=== PATIENT | male | born 1965 | race Caucasian/White ===

== ENCOUNTER 2019-01-14 13:14 | Emergency (ER) | payer OTHER ==
[~2019-01-14] VITALS: Ht 188 cm; Wt 98.5 kg
[2019-01-14 13:16] VITALS: BP 136/86
[2019-01-14] MEDS ORDERED: sulfamethoxazole/trimethoprim DS (800/160mg) tablet PO ONE (13:45)
[2019-01-14] MEDS ORDERED: SULF1TAB49 PO (13:52)
[2019-01-14] MEDS ORDERED: bacitracin 15gm ointment TP ONE (13:55)
[2019-01-15] MEDS ORDERED: HYDR-3965 PO (03:23)
== END 2019-01-14 14:50 | disposition home or self-care (01) ==
LOC: ER 13:14
DX: L08.9 Local infection of the skin and subcutaneous tissue, unspecified (principal); Z79.2 Long term (current) use of antibiotics
CPT/HCPCS: 73130; 99283

== ENCOUNTER 2019-01-15 01:12 | Emergency (ER) | payer OTHER ==
[~2019-01-15] VITALS: Ht 188 cm; Wt 96.0 kg
[~2019-01-15 01:12] MED LIST: SULF1TAB49 PO
--- NOTE | 2019-01-15 02:40 | NUR ---
PT SEEN HERE AROUND NOON TODAY. XRAY TAKEN AND NO FRACTURE NOTED, PT STARTED ON BACTRUM. PT REPORTS "FELICIANO NEVER BEEN IN SO MUCH PAIN IN ALL MY LIFE". rEPORTS THE LEFT HANDIS MORE SWOLLEN AND THE PAIN WAS ONLY IN HIS PINKY FINGER EARLIER, BUT IS NOW IN 5TH, 4TH AND 3RD DIGIT. CURRENT VSS.
--- NOTE | 2019-01-15 02:55 | NUR ---
PT AWAITING ER .
[2019-01-15] MEDS ORDERED: HYDROcodone/acetaminophen 5mg/325mg tablet PO ONE (03:20)
[2019-01-15] MEDS ORDERED: HYDR-3965 PO (03:23)
[2019-01-15 03:37] VITALS: BP 117/74
== END 2019-01-15 03:39 | disposition home or self-care (01) ==
LOC: ER 01:14
DX: L03.114 Cellulitis of left upper limb (principal); Z79.2 Long term (current) use of antibiotics; Z79.899 Other long term (current) drug therapy
CPT/HCPCS: 99283

== ENCOUNTER 2020-10-18 16:20 | Inpatient (IN) | payer OTHER ==
[~2020-10-18] VITALS: Ht 188 cm; Wt 110.2 kg
--- NOTE | 2020-10-18 16:53 | NUR ---
DR NEWMAN AT BEDSIDE, AWARE OF HR
[2020-10-18] MEDS ORDERED: normal saline 1000ML IV soln IVB ONE ×3 (16:55→20:05)
[2020-10-18] MEDS ORDERED: aspirin 81mg tab.chew PO ONE (16:55)
[2020-10-18] MEDS ORDERED: diltiazem-NS 100mg/100ml 100 ML IV ONE (16:55)
[2020-10-18] MEDS ORDERED: diltiazem 5mg/ml 5ml inj. IV ONE ×2 (16:55→17:50)
[2020-10-18 17:09] LABS: BASOPHILS # (AUTO) 0.1 X10'3 (0-0.2); BASOPHILS % (AUTO) 1.2 % (0-1); EOSINOPHILS # (AUTO) 0.1 X10'3 (0-0.9); HEMATOCRIT 44.2 % (42.0-52.0); HEMOGLOBIN 14.5 g/dl (14.0-17.9); LYMPHOCYTES # (AUTO) 1.4 X10'3 (1.1-4.8); LYMPHOCYTES % (AUTO) 21.4 % (21-51); MEAN CORPUSCULAR HEMOGLOBIN 29.6 PG (27.0-31.0); MEAN CORPUSCULAR HGB CONC 32.9 g/dL (33.0-36.5); MEAN CORPUSCULAR VOLUME 89.9 FL (78-98); MEAN PLATELET VOLUME 8.1 FL (7.4-10.4); MONOCYTES # (AUTO) 0.4 X10'3 (0-0.9); MONOCYTES % (AUTO) 5.9 % (2-12); NEUTROPHILS # (AUTO) 4.7 X10'3 (1.8-7.7); NEUTROPHILS % (AUTO) 70.5 % (42-75); PLATELET COUNT 322 X10'3 (140-440); RED BLOOD COUNT 4.92 X10'6 (4.70-6.10); RED CELL DISTRIBUTION WIDTH 14.4 % (11.5-14.5); WHITE BLOOD COUNT 6.7 X10'3 (4.5-11.0)
[2020-10-18 17:15] LABS: ALANINE AMINOTRANSFERASE 42 U/L (12-78); ALBUMIN 3.2 G/DL (3.4-5.0); ALKALINE PHOSPHATASE 56 IU/L (46-116); ANION GAP 10 (8-16); ASPARTATE AMINO TRANSFERASE 18 U/L (10-37); BILIRUBIN,TOTAL 0.5 MG/DL (0.1-1.0); BLOOD UREA NITROGEN 23 MG/DL (7-18); BUN/CREATININE RATIO 19.8 (5.4-32.0); CALCIUM 8.4 MG/DL (8.5-10.1); CHLORIDE 106 MMOL/L (99-107); CREATININE 1.16 MG/DL (0.60-1.10); GLUCOSE 116 MG/DL (70-104); POTASSIUM 4.6 MMOL/L (3.5-5.1); SODIUM 139 MMOL/L (135-145); TOTAL CARBON DIOXIDE 22.8 MMOL/L (24-32); TOTAL PROTEIN 6.4 G/DL (6.4-8.2); eGFR 65 ML/MIN
[2020-10-18 17:23] LABS: ETHANOL < 0.010 GM/DL (0.0-0.010); MAGNESIUM 1.7 MG/DL (1.5-2.4)
--- NOTE | 2020-10-18 17:48 | NUR ---
DR NEWMAN AT BEDSIDE, ORDER FOR ANOTHER 10 OF CINTIA
[2020-10-18] MEDS ORDERED: metoprolol tartrate 1mg/ml inj IV ONE (17:50)
[2020-10-18] MEDS ORDERED: iohexol 350MG/ML 100ml bottle IV ONE (17:59)
[2020-10-18] MEDS ORDERED: LORazepam 2 mg/ml vial IV ONE (19:00)
--- NOTE | 2020-10-18 19:12 | NUR ---
PT VERY ANXIOUS, SWEATY, HR INCREASING, THEN DECREASING, FROM 80'S TO 120'S. DR NEWMAN AWARE, WILL GIVE ATIVAN
[2020-10-18 19:20] LABS: URINE AMPHETAMINE SCREEN POSITIVE (Neg); URINE BARBITUATE SCREEN NEGATIVE (Neg); URINE BENZODIAZEPINES SCREEN NEGATIVE (Neg); URINE CANNABINOID SCREEN POSITIVE (Neg); URINE COCAINE SCREEN NEGATIVE (Neg); URINE METHADONE SCREEN NEGATIVE (Neg); URINE OPIATE SCREEN NEGATIVE (Neg); URINE PHENCYCLIDINE SCREEN NEGATIVE (Neg)
--- NOTE | 2020-10-18 19:30 | NUR ---
TO CT WITH THIS RN ON MONITOR
--- NOTE | 2020-10-18 19:50 | NUR ---
RETURNED TO ROOM 2, PT RESTING NOW
[2020-10-18] MEDS ORDERED: magnesium hydroxide 30ml (MOM) UD suspension PO PRN (20:10)
[2020-10-18] MEDS ORDERED: magnesium Cl slow-release 64mg tablet PO PRN (20:10)
[2020-10-18] MEDS ORDERED: magnesium 4gm in 100ml NS 100 ML IV PRN (20:10)
[2020-10-18] MEDS ORDERED: potassium Cl 40MEQ/1/2NS 520ml 520 ML IV PRN ×2 (20:10)
[2020-10-18] MEDS ORDERED: acetaminophen 325mg tablet PO PRN (20:10)
[2020-10-18] MEDS ORDERED: magnesium 2GM in 50ml NS 50 ML IV PRN (20:10)
[2020-10-18] MEDS ORDERED: mag hydrox/Alum hydrox/simeth 30ml oral suspension PO PRN (20:10)
[2020-10-18] MEDS ORDERED: PERFLUTREN PROTEIN-A MICROSPHR (Optison) 0.22 MG/ML 3ML VIAL IV PRN (20:10)
[2020-10-18] MEDS ORDERED: potassium Cl 20 mEq SR tablet PO PRN ×2 (20:10)
[2020-10-18] MEDS ORDERED: NO HOME MEDS (20:18)
[2020-10-18] MEDS: normal saline 1000ml 1,000 ML IV SCH ×2 (20:26→23:45)
--- NOTE | 2020-10-18 21:15 | NUR ---
DR BAUGH PG'ED TO NOTIFY THAT PT'S HR CONTINUES TO JUMP TO 140'S INTERMITTENTLY (ONLY STAYING FOR ABOUT 30 SECONDS, THEN GOING BACK TO 80'S). APPEARS TO BE AFLUTTER OR A FIB. DR BAUGH OK WITH THAT, DOES NOT WANT TO DO BETABLOCKERS AT THIS TIME DUE TO PTS BP. CONFIRMED WITH DR BAUGH THAT HE WANTS A TOTAL OF 90 MG LOVENOX AT THIS TIME. PT CONTINUES TO SLEEP. SKIN LESS DIAPHORETIC. AWAKENS EASILY TO VOICE
[2020-10-18] MEDS: enoxaparin 30mg/0.3ml syringe SUBCUT SCH (21:51)
[2020-10-18] MEDS: enoxaparin 60mg/0.6ml syringe SUBCUT SCH (21:52)
--- NOTE | 2020-10-18 22:00 | NUR ---
Patient in room MED 314. I have received report from Krystina(ER), and had the opportunity to ask questions and assume patient care.
[2020-10-18 22:30] VITALS: BP 102/76
[2020-10-18 23:25] VITALS: BP 97/73
[2020-10-19] VITALS (10 sets, daily range): BP systolic 79–123; BP diastolic 34–86
--- NOTE | 2020-10-19 00:15 | NUR ---
Called Dr. Pierre regarding the patient's irregular heart rate, ranging from 80's to 130's. He is aware of it. Did not order any medications at this time.
--- NOTE | 2020-10-19 00:20 | NUR ---
Called Dr. Pierre regarding the patient being agitated and anxious. He ordered ativan 1mg IV PRN Q4hr. No other orders were given at this time.
[2020-10-19] MEDS: LORazepam 2 mg/ml vial IV PRN ×2 (00:31→09:26)
--- NOTE | 2020-10-19 03:07 | NUR ---
Called Dr. Pierre to confirm that the patient's cardizem drip discontinued before the patient get at our floor at around 1999. He confirmed that yes the cardizem drip is discontinued.
--- NOTE | 2020-10-19 06:20 | NUR ---
Problems reprioritized. Patient report given, questions answered & plan of care reviewed with Jaki-RN.
[2020-10-19 06:56] LABS: BASOPHILS % (AUTO) 0.7 % (0-1); EOSINOPHILS # (AUTO) 0.1 X10'3 (0-0.9); EOSINOPHILS % (AUTO) 1.1 % (0-6); HEMATOCRIT 42.1 % (42.0-52.0); HEMOGLOBIN 13.8 g/dl (14.0-17.9); LYMPHOCYTES # (AUTO) 1.5 X10'3 (1.1-4.8); LYMPHOCYTES % (AUTO) 21.8 % (21-51); MEAN CORPUSCULAR HEMOGLOBIN 29.5 PG (27.0-31.0); MEAN CORPUSCULAR HGB CONC 32.9 g/dL (33.0-36.5); MEAN CORPUSCULAR VOLUME 89.8 FL (78-98); MEAN PLATELET VOLUME 8.8 FL (7.4-10.4); MONOCYTES # (AUTO) 0.4 X10'3 (0-0.9); MONOCYTES % (AUTO) 6.2 % (2-12); NEUTROPHILS # (AUTO) 4.7 X10'3 (1.8-7.7); NEUTROPHILS % (AUTO) 70.2 % (42-75); PLATELET COUNT 296 X10'3 (140-440); RED BLOOD COUNT 4.69 X10'6 (4.70-6.10); RED CELL DISTRIBUTION WIDTH 14.8 % (11.5-14.5); WHITE BLOOD COUNT 6.7 X10'3 (4.5-11.0)
[2020-10-19 07:06] LABS: ALANINE AMINOTRANSFERASE 38 U/L (12-78); ALBUMIN 2.7 G/DL (3.4-5.0); ALBUMIN/GLOBULIN RATIO 0.9 (1.1-1.5); ALKALINE PHOSPHATASE 48 IU/L (46-116); ANION GAP 9 (8-16); ASPARTATE AMINO TRANSFERASE 13 U/L (10-37); BILIRUBIN,TOTAL 1.1 MG/DL (0.1-1.0); BLOOD UREA NITROGEN 21 MG/DL (7-18); BUN/CREATININE RATIO 19.3 (5.4-32.0); CALCIUM 7.9 MG/DL (8.5-10.1); CHLORIDE 111 MMOL/L (99-107); CREATININE 1.09 MG/DL (0.60-1.10); GLUCOSE 97 MG/DL (70-104); POTASSIUM 4.5 MMOL/L (3.5-5.1); SODIUM 141 MMOL/L (135-145); TOTAL CARBON DIOXIDE 20.8 MMOL/L (24-32); TOTAL PROTEIN 5.7 G/DL (6.4-8.2); eGFR 70 ML/MIN
[2020-10-19] MEDS: enoxaparin 60mg/0.6ml syringe SUBCUT SCH ×2 (08:00→21:17)
[2020-10-19] MEDS ORDERED: metoprolol tartrate 12.5mg (1/2 tablet) PO SCH (08:00)
[2020-10-19] MEDS: enoxaparin 30mg/0.3ml syringe SUBCUT SCH ×2 (08:00→21:16)
[2020-10-19] MEDS: K and/or MAG REPLACEMENT MC SCH ×2 (08:00→20:00)
--- NOTE | 2020-10-19 09:38 | NUR ---
PAGER ID: [phone] MESSAGE: patient in room 314 [place] is very anxious and short of breath gave Ativan, he is on NC 5 l right now with sats between 88%-92% (Jaki)
[2020-10-19] MEDS ORDERED: diltiazem-NS 100mg/100ml 100 ML IV SCH (10:05)
[2020-10-19] MEDS ORDERED: amiodarone 150mg/dext, iso-os 100 ML IV ONE ×2 (11:35→16:05)
[2020-10-19] MEDS: amiodarone/D5 360MG/200ML BAG 200 ML IV SCH ×3 (11:53→22:26)
[2020-10-19] MEDS ORDERED: furosemide 40mg/4ml inj IV ONE (12:10)
[2020-10-19] MEDS ORDERED: LORazepam 2 mg/ml vial IV ONE (12:20)
[2020-10-19] MEDS ORDERED: ipratropium/albuterol 3ml nebule NEB PRN (12:25)
[2020-10-19 12:40] LABS: BASOPHILS # (AUTO) 0.1 X10'3 (0-0.2); BASOPHILS % (AUTO) 0.9 % (0-1); EOSINOPHILS # (AUTO) 0.1 X10'3 (0-0.9); EOSINOPHILS % (AUTO) 0.7 % (0-6); HEMATOCRIT 47.3 % (42.0-52.0); HEMOGLOBIN 15.7 g/dl (14.0-17.9); LYMPHOCYTES # (AUTO) 1.5 X10'3 (1.1-4.8); LYMPHOCYTES % (AUTO) 18.9 % (21-51); MEAN CORPUSCULAR HGB CONC 33.1 g/dL (33.0-36.5); MEAN CORPUSCULAR VOLUME 90.6 FL (78-98); MEAN PLATELET VOLUME 8.4 FL (7.4-10.4); MONOCYTES # (AUTO) 0.4 X10'3 (0-0.9); NEUTROPHILS # (AUTO) 5.9 X10'3 (1.8-7.7); NEUTROPHILS % (AUTO) 74.5 % (42-75); PLATELET COUNT 338 X10'3 (140-440); RED BLOOD COUNT 5.23 X10'6 (4.70-6.10); RED CELL DISTRIBUTION WIDTH 14.7 % (11.5-14.5); WHITE BLOOD COUNT 7.9 X10'3 (4.5-11.0)
[2020-10-19 12:55] LABS: D-DIMER 0.92 MG/L FEU (0-0.50); PARTIAL THROMBOPLASTIN TIME 31 SECONDS (22-32)
[2020-10-19] MEDS ORDERED: LORazepam 2 mg/ml vial IV PRN (12:55)
[2020-10-19 13:07] LABS: ALANINE AMINOTRANSFERASE 46 U/L (12-78); ALBUMIN/GLOBULIN RATIO 0.9 (1.1-1.5); ALKALINE PHOSPHATASE 60 IU/L (46-116); ANION GAP 11 (8-16); ASPARTATE AMINO TRANSFERASE 20 U/L (10-37); BILIRUBIN,TOTAL 1.1 MG/DL (0.1-1.0); BLOOD UREA NITROGEN 22 MG/DL (7-18); BUN/CREATININE RATIO 18.5 (5.4-32.0); CALCIUM 8.3 MG/DL (8.5-10.1); CHLORIDE 110 MMOL/L (99-107); CREATININE 1.19 MG/DL (0.60-1.10); GLUCOSE 125 MG/DL (70-104); POTASSIUM 4.5 MMOL/L (3.5-5.1); SODIUM 142 MMOL/L (135-145); TOTAL CARBON DIOXIDE 20.6 MMOL/L (24-32); TOTAL PROTEIN 6.5 G/DL (6.4-8.2); TROPONIN I < 0.04 NG/ML (0.0-0.05); eGFR 63 ML/MIN
[2020-10-19 13:13] LABS: ABG BASE EXCESS -7.1 mmol/L (-2.0-2.0); ABG HCO3 14.6 mmol/L (22.0-26.0); ABG OXYGEN SATURATION 94.3 % (94-97); ABG PCO2 (T) 22.3 mmHg (35.0-48.0); ABG PO2 (T) 69.6 mmHg (75.0-100.0); ALLEN'S TEST POSITIVE; FCOHb 0.4 % (0.0-3.9); FLOW 15 L/min; FMetHb 0.2 % (0.0-1.5); FO2Hb 93.7 % (94-97); TOTAL HEMOGLOBIN 15.5 G/dl (14.0-18.0)
[2020-10-19] MEDS ORDERED: morphine 2 MG/ML inj. syringe IV PRN (14:10)
[2020-10-19] MEDS ORDERED: morphine 2 MG/ML inj. syringe IV STA (14:45)
[2020-10-19] MEDS ORDERED: haloperidol lactate 5mg/ml inj IM ONE ×2 (14:50)
[2020-10-19] MEDS: ipratropium/albuterol 3ml nebule NEB SCH ×3 (15:00→22:55)
[2020-10-19] MEDS ORDERED: diphenhydrAMINE 50 mg/ml inj ONE (15:03)
[2020-10-19] MEDS ORDERED: diphenhydrAMINE 50 mg/ml inj IV ONE (15:05)
[2020-10-19] MEDS ORDERED: MIDAZolam 1mg/ml 10ml vial ONE (15:26)
[2020-10-19] MEDS ORDERED: fentaNYL/PF 50MCG/1 ML 2ML syringe ONE (15:26)
--- NOTE | 2020-10-19 15:30 | NUR ---
CUSTOMER ASSISTANT Argenis administered 5mg of versed and fentanyl to patient during code blue. All of fentanyl was administered during code.
[2020-10-19] MEDS ORDERED: fentaNYL/PF 50MCG/1 ML 2ML syringe IV ONE (15:35)
[2020-10-19] MEDS ORDERED: MIDAZolam 1mg/ml 10ml vial IV ONE (15:35)
[2020-10-19] MEDS ORDERED: LIDOcaine 2% 10ml TOPICAL JELLY (Urojet) TP ONE (16:20)
[2020-10-19] MEDS: vancomycin/NS 1 GM ADD-VANTAGE 250 ML IV SCH (16:36)
[2020-10-19 17:04] LABS: CLARITY,URINE CLOUDY (Clear); COLOR,URINE YELLOW (Yellow); GLUCOSE, URINE NEGATIVE (Neg); KETONES,URINE NEGATIVE (Neg); LEUKOCYTE ESTERASE ,URINE NEGATIVE (Neg); NITRITES, URINE NEGATIVE (Neg); OCCULT BLOOD,URINE SMALL (Neg); PH,URINE 5.5 (4.8-8.0); PROTEIN,URINE >=300 mg/dl (Neg); UROBILINOGEN,URINE 0.2 E.U/dL (0.2-1.0)
[2020-10-19] MEDS ORDERED: albumin (Human) 5% 250ml 250 ML IV ONE ×2 (17:10)
[2020-10-19] MEDS ORDERED: sodium bicarbonate (8.4%) inj. 100 MEQ in dextrose 5%-water 1,000 ML IV SCH (17:10)
[2020-10-19 17:12] LABS: UA COLLECTION TYPE FOLEY CATH
[2020-10-19 17:19] LABS: HYALINE CASTS >30 /LPF (NEGATIVE); SQUAMOUS EPITHELIAL CELL,UR FEW /LPF (FEW)
[2020-10-19 17:20] LABS: MUCUS STRANDS FEW /LPF (Neg); RENAL CELLS, URINE FEW /HPF; TRANSITIONAL EPI CELLS,URINE FEW /HPF
[2020-10-19 17:21] LABS: WBC,URINE 0-4 /HPF (0-4)
[2020-10-19 17:23] LABS: AMORPHOUS URATES 4+; BACTERIA,URINE NONE SEEN /HPF (Neg)
--- NOTE | 2020-10-19 17:28 | NUR ---
PATIENT WAS TRASNFERED WITH GLASSES AND AND CELLPHONE TO ICUI
[2020-10-19] MEDS ORDERED: etomidate 2mg/ml inj. ONE (18:00)
[2020-10-19] MEDS ORDERED: sod chloride 0.9% 10ml flush syringe IV ONE (18:00)
[2020-10-19] MEDS: midazolam 100mg in NS 100ml 100 ML IV SCH (18:09)
--- NOTE | 2020-10-19 18:53 | NUR ---
Problems reprioritized. Patient report given, questions answered & plan of care reviewed with Lilian Aragon RN. Needs ETT advancement, start levophed, start bicarb.
[2020-10-19] MEDS: FENTANYL-0.9 % NACL/PF 100 ML IV SCH (21:20)
[2020-10-19] MEDS: piperacillin/tazo 3.375gm/50ml 50 ML IV SCH (22:05)
[2020-10-19] MEDS: NORepinephrine 8mg/ 250ml NS 250 ML IV PRN (22:23)
[2020-10-20] VITALS (23 sets, daily range): BP systolic 59–101; BP diastolic 31–61
[2020-10-20] MEDS: piperacillin/tazo 3.375gm/50ml 50 ML IV SCH ×3 (00:42→15:55)
[2020-10-20] MEDS: DOBUTamine-DoBUTrex 500mg/D5W 250 ML IV SCH ×3 (01:12→19:00)
[2020-10-20] MEDS: NORepinephrine 8mg/ 250ml NS 250 ML IV PRN ×2 (01:40→03:35)
[2020-10-20] MEDS ORDERED: sodium bicarbonate (8.4%) 1 mEq/ml syringe ONE (02:37)
[2020-10-20] MEDS ORDERED: calcium chloride 100 MG/1 ML inj IV ONE ×2 (02:37→03:05)
[2020-10-20] MEDS ORDERED: epiNEPHrine 0.1mg/ml 10ml syringe ONE (02:38)
[2020-10-20] MEDS: ipratropium/albuterol 3ml nebule NEB SCH ×6 (02:58→23:11)
[2020-10-20] MEDS ORDERED: sodium bicarbonate (8.4%) 1 mEq/ml syringe IV ONE ×2 (03:00→05:05)
[2020-10-20 03:05] LABS: BASOPHILS % (AUTO) 0.2 % (0-1); EOSINOPHILS % (AUTO) 0.1 % (0-6); LYMPHOCYTES # (AUTO) 0.9 X10'3 (1.1-4.8); LYMPHOCYTES % (AUTO) 7.3 % (21-51); MEAN CORPUSCULAR HEMOGLOBIN 29.7 PG (27.0-31.0); MEAN CORPUSCULAR HGB CONC 31.8 g/dL (33.0-36.5); MEAN CORPUSCULAR VOLUME 93.3 FL (78-98); MEAN PLATELET VOLUME 8.6 FL (7.4-10.4); MONOCYTES % (AUTO) 7.9 % (2-12); NEUTROPHILS # (AUTO) 10.8 X10'3 (1.8-7.7); NEUTROPHILS % (AUTO) 84.5 % (42-75); PLATELET COUNT 277 X10'3 (140-440); RED BLOOD COUNT 4.72 X10'6 (4.70-6.10); RED CELL DISTRIBUTION WIDTH 15.2 % (11.5-14.5); WHITE BLOOD COUNT 12.8 X10'3 (4.5-11.0)
[2020-10-20 03:21] LABS: ALBUMIN 2.8 G/DL (3.4-5.0); ALKALINE PHOSPHATASE 59 IU/L (46-116); ANION GAP 20 (8-16); BILIRUBIN,TOTAL 2.4 MG/DL (0.1-1.0); BLOOD UREA NITROGEN 34 MG/DL (7-18); BUN/CREATININE RATIO 12.1 (5.4-32.0); CALCIUM 7.5 MG/DL (8.5-10.1); CHLORIDE 108 MMOL/L (99-107); CREATININE 2.81 MG/DL (0.60-1.10); GLUCOSE 87 MG/DL (70-104); MAGNESIUM 2.2 MG/DL (1.5-2.4); SODIUM 140 MMOL/L (135-145); TOTAL PROTEIN 5.5 G/DL (6.4-8.2); eGFR 23 ML/MIN
[2020-10-20] MEDS: vasopressin inj. 40 UNIT in normal saline 50ml IV soln 38 ML IV SCH ×2 (03:33→09:28)
[2020-10-20] MEDS: vancomycin/NS 1 GM ADD-VANTAGE 250 ML IV SCH (03:35)
[2020-10-20] MEDS: epiNEPHrine inj 5 MG in normal saline 250ml IV soln 245 ML IV PRN ×5 (03:35→10:49)
[2020-10-20 03:44] LABS: POTASSIUM 6.8 MMOL/L (3.5-5.1); TOTAL CARBON DIOXIDE 11.7 MMOL/L (24-32)
[2020-10-20 03:55] LABS: ALANINE AMINOTRANSFERASE 2603 U/L (12-78); ASPARTATE AMINO TRANSFERASE 2395 U/L (10-37)
[2020-10-20] MEDS: sodium bicarbonate (8.4%) inj. 150 MEQ in dextrose 5%-water 1,000 ML IV SCH ×2 (04:02→15:24)
[2020-10-20] MEDS ORDERED: dextrose 50%-water 50ml dispensing syringe IV ONE (05:05)
[2020-10-20] MEDS ORDERED: sodium polystyrene sulfonate 15gm/60ml oral suspension PO ONE (05:10)
[2020-10-20] MEDS ORDERED: insulin regular, human U-100 3ml vial - multi-dose IV ONE (05:40)
[2020-10-20] MEDS ORDERED: calcium chloride inj. 1,000 MG in normal saline 100ml IV soln 100 ML IV ONE (05:40)
[2020-10-20] MEDS: amiodarone/D5 360MG/200ML BAG 200 ML IV SCH ×4 (05:47→22:40)
[2020-10-20] MEDS: NORepinephrine inj. 32 MG in normal saline 250ml IV soln 218 ML IV SCH ×4 (05:52→22:07)
[2020-10-20] MEDS ORDERED: potassium Cl 40MEQ/250ML bag 270 ML IV PRN ×2 (07:55)
[2020-10-20] MEDS ORDERED: magnesium 4gm in 100ml NS 100 ML IV PRN ×2 (07:55→08:00)
[2020-10-20] MEDS ORDERED: calcium chloride inj. 1,000 MG in normal saline 100ml IV soln 100 ML IV PRN ×5 (07:55→08:00)
[2020-10-20] MEDS ORDERED: sodium phosphate inj. 30 MMOL in normal saline 250ml IV soln 250 ML IV PRN ×5 (07:55→08:00)
[2020-10-20] MEDS ORDERED: bicarb dialysis sol 2K+/3 Ca2+ 5,000 ML HE SCH (08:00)
[2020-10-20] MEDS: losartan 25mg tablet PO SCH (08:00)
[2020-10-20] MEDS: metoprolol succinate 25mg (24-HOUR) SR. Tablet PO SCH (08:00)
[2020-10-20] MEDS: CALCIUM GLUC 1gm/50ml NACL,iso 50 ML IV SCH ×2 (08:02→08:39)
[2020-10-20 08:04] LABS: ALBUMIN 2.2 G/DL (3.4-5.0); ALKALINE PHOSPHATASE 51 IU/L (46-116); ANION GAP 26 (8-16); BILIRUBIN,TOTAL 1.8 MG/DL (0.1-1.0); BLOOD UREA NITROGEN 39 MG/DL (7-18); BUN/CREATININE RATIO 12.5 (5.4-32.0); CALCIUM 7.1 MG/DL (8.5-10.1); CHLORIDE 111 MMOL/L (99-107); CREATININE 3.13 MG/DL (0.60-1.10); GLUCOSE 149 MG/DL (70-104); MAGNESIUM 1.8 MG/DL (1.5-2.4); PHOSPHORUS 6.8 MG/DL (2.3-4.5); POTASSIUM 3.6 MMOL/L (3.5-5.1); SODIUM 147 MMOL/L (135-145); TOTAL PROTEIN 4.5 G/DL (6.4-8.2); eGFR 21 ML/MIN
[2020-10-20 08:09] LABS: TOTAL CARBON DIOXIDE 9.9 MMOL/L (24-32)
[2020-10-20] MEDS: K and/or MAG REPLACEMENT MC SCH ×2 (08:20→20:00)
[2020-10-20 08:22] LABS: ALANINE AMINOTRANSFERASE 6056 U/L (12-78); ASPARTATE AMINO TRANSFERASE > 7000 U/L (10-37)
[2020-10-20] MEDS: midazolam 100mg in NS 100ml 100 ML IV SCH (09:25)
[2020-10-20] MEDS: Duosol 4K/3 Ca (w/calcium) 5,000 ML HE SCH ×9 (10:04→22:22)
[2020-10-20 10:13] LABS: OXYGEN SATURATION (MIXED VEN) 47.6 % (60-80); PO2 MIXED VENOUS (TEMP COR) 31.8 mmHg (35-46)
[2020-10-20 10:13] LABS: ABG BASE EXCESS -11.9 mmol/L (-2.0-2.0); ABG HCO3 15.7 mmol/L (22.0-26.0); ABG OXYGEN SATURATION 83.4 % (94-97); ABG PCO2 (T) 41.2 mmHg (35.0-48.0); ABG PO2 (T) 58.5 mmHg (75.0-100.0); ALLEN'S TEST POSITIVE; FCOHb 0.1 % (0.0-3.9); FMetHb 0.2 % (0.0-1.5); FO2Hb 83.1 % (94-97); PEEP 5 cm H2O; RESPIRATORY RATE 8 b/min; TIDAL VOLUME 500 mL; TOTAL HEMOGLOBIN 15.1 G/dl (14.0-18.0)
[2020-10-20 10:13] LABS: ABG BASE EXCESS -12.7 mmol/L (-2.0-2.0); ABG OXYGEN SATURATION 95.3 % (94-97); ABG PCO2 (T) 25.8 mmHg (35.0-48.0); ALLEN'S TEST POSITIVE; FCOHb 0.3 % (0.0-3.9); FMetHb 0.3 % (0.0-1.5); FO2Hb 94.7 % (94-97); PEEP 8 cm H2O; RESPIRATORY RATE 18 b/min; TIDAL VOLUME 500 mL; TOTAL HEMOGLOBIN 15.3 G/dl (14.0-18.0)
[2020-10-20 10:13] LABS: ABG HCO3 8.1 mmol/L (22.0-26.0); ABG OXYGEN SATURATION 84.5 % (94-97); ABG PO2 (T) 56.7 mmHg (75.0-100.0); ALLEN'S TEST n; FCOHb 0.1 % (0.0-3.9); FMetHb 0.3 % (0.0-1.5); FO2Hb 84.2 % (94-97); PATIENT TEMPERATURE 36.3; PEEP 8 cm H2O; RESPIRATORY RATE 18 b/min; TIDAL VOLUME 500 mL; TOTAL HEMOGLOBIN 14.8 G/dl (14.0-18.0)
[2020-10-20 10:43] LABS: CLARITY,URINE CLOUDY (Clear); COLOR,URINE YELLOW (Yellow); GLUCOSE, URINE NEGATIVE (Neg); KETONES,URINE TRACE mg/dl (Neg); LEUKOCYTE ESTERASE ,URINE NEGATIVE (Neg); NITRITES, URINE NEGATIVE (Neg); OCCULT BLOOD,URINE LARGE (Neg); PROTEIN,URINE >=300 mg/dl (Neg)
[2020-10-20] MEDS: pantoprazole 40 MG vial IV SCH (10:46)
[2020-10-20 10:53] LABS: UA COLLECTION TYPE NON-SPECIFIED
[2020-10-20 10:55] LABS: AMORPHOUS URATES 4+
[2020-10-20 10:56] LABS: PARTIAL THROMBOPLASTIN TIME 34 SECONDS (22-32)
[2020-10-20 10:57] LABS: RBC,URINE 50-100 /HPF (0-2)
[2020-10-20 10:58] LABS: BACTERIA,URINE 2+ /HPF (Neg); SQUAMOUS EPITHELIAL CELL,UR MODERATE /LPF (FEW)
[2020-10-20 11:19] LABS: D-DIMER > 35.20 MG/L FEU (0-0.50)
[2020-10-20 11:27] LABS: UA EOSINOPHILS NO EOS /HPF
--- NOTE | 2020-10-20 11:36 | NUR ---
Jose Consult: Pt intubated s/p code DX respiratory failure, lactic acidosis, CHF EF 15%, SAMUEL, and multi-organ failure at this time per precision dancer at rounds. Jose 12 w/ skin intact per EMR. Pt started on CVVH today receiving max dose on multiple pressors per RN w/ MAP 57 during rounds this AM. OG in place; TF recs below using IBW since pending scaled wt this admit. LBM 10/18. Will monitor for nutrition support needs this admit. Rec: 1. IF TF; Vital High Protein at 100ml/hr goal to provide 2400ml volume, 2400 kcals, 2016ml free water, and 210g protein. IF pt off CVVH consider change to Vital AF at 85ml/hr goal. 2. IF TF; additional water flush per precision dancer on CVVH 3. IF TF; PALB Q /; daily wts 4. IF TF; Phos binder on CVVH w/ Phos 6.8 5. routine bowel care 6. Monitor for MAP changes; consider postponing EN until MAP consistently at least 60 Addendum: 10/20/20 at [address] Amended: Links added.
[2020-10-20] MEDS: FENTANYL-0.9 % NACL/PF 100 ML IV SCH ×2 (11:47→21:18)
[2020-10-20] MEDS: normal saline 1000ml 1,000 ML IV SCH ×2 (12:10→15:51)
[2020-10-20 12:17] LABS: ALBUMIN 2.4 G/DL (3.4-5.0); ANION GAP 24 (8-16); BLOOD UREA NITROGEN 41 MG/DL (7-18); BUN/CREATININE RATIO 13.7 (5.4-32.0); CALCIUM 7.2 MG/DL (8.5-10.1); CHLORIDE 108 MMOL/L (99-107); GLUCOSE 137 MG/DL (70-104); MAGNESIUM 1.7 MG/DL (1.5-2.4); PHOSPHORUS 6.9 MG/DL (2.3-4.5); SODIUM 144 MMOL/L (135-145); eGFR 22 ML/MIN
[2020-10-20 12:23] LABS: TOTAL CARBON DIOXIDE 12.4 MMOL/L (24-32)
[2020-10-20] MEDS: NORMAL SALINE IV SCH ×3 (12:47→19:31)
[2020-10-20] MEDS: EPINEPHRINE IV SCH ×3 (12:47→19:31)
[2020-10-20 14:28] LABS: ALBUMIN 2.6 G/DL (3.4-5.0); ANION GAP 20 (8-16); BLOOD UREA NITROGEN 39 MG/DL (7-18); BUN/CREATININE RATIO 13.4 (5.4-32.0); CALCIUM 7.3 MG/DL (8.5-10.1); CHLORIDE 107 MMOL/L (99-107); CREATININE 2.91 MG/DL (0.60-1.10); GLUCOSE 141 MG/DL (70-104); MAGNESIUM 1.8 MG/DL (1.5-2.4); PHOSPHORUS 6.7 MG/DL (2.3-4.5); POTASSIUM 4.3 MMOL/L (3.5-5.1); SODIUM 143 MMOL/L (135-145); TOTAL CARBON DIOXIDE 16.2 MMOL/L (24-32); eGFR 23 ML/MIN
[2020-10-20 15:19] LABS: ABG HCO3 14.4 mmol/L (22.0-26.0); ABG OXYGEN SATURATION 98.2 % (94-97); ABG PCO2 (T) 29.2 mmHg (35.0-48.0); FCOHb 0.3 % (0.0-3.9); FMetHb 0.4 % (0.0-1.5); FO2Hb 97.5 % (94-97); PATIENT TEMPERATURE 35.5; PEEP 8 cm H2O; RESPIRATORY RATE 26 b/min; TIDAL VOLUME 500 mL
--- NOTE | 2020-10-20 17:38 | NUR ---
A-line and Tulio catheter placed by Dr. Prasad. CRRT started. Remains maxed out on pressors to maintain MAP 60-65. Sister Brooklyn at bedside today, able to receive updates by MD and plan to meet tomorrow for family meeting and plan of care.
--- NOTE | 2020-10-20 18:30 | NUR ---
Patient in room ICU 2043. I have received report from Donya JEAN and had the opportunity to ask questions and assume patient care.
[2020-10-20 20:09] LABS: ABG BASE EXCESS -3.4 mmol/L (-2.0-2.0); ABG HCO3 20.8 mmol/L (22.0-26.0); ABG OXYGEN SATURATION 96.4 % (94-97); ABG PCO2 (T) 34.9 mmHg (35.0-48.0); FCOHb 0.3 % (0.0-3.9); FMetHb 0.3 % (0.0-1.5); FO2Hb 95.8 % (94-97); PATIENT TEMPERATURE 37.1; PEEP 8 cm H2O; RESPIRATORY RATE 26 b/min; TIDAL VOLUME 500 mL; TOTAL HEMOGLOBIN 13.7 G/dl (14.0-18.0)
[2020-10-20 21:16] LABS: ALBUMIN 2.4 G/DL (3.4-5.0); ANION GAP 12 (8-16); BLOOD UREA NITROGEN 33 MG/DL (7-18); CALCIUM 7.1 MG/DL (8.5-10.1); CHLORIDE 107 MMOL/L (99-107); CREATININE 2.54 MG/DL (0.60-1.10); GLUCOSE 109 MG/DL (70-104); MAGNESIUM 1.5 MG/DL (1.5-2.4); PHOSPHORUS 4.8 MG/DL (2.3-4.5); POTASSIUM 4.1 MMOL/L (3.5-5.1); SODIUM 143 MMOL/L (135-145); TOTAL CARBON DIOXIDE 23.7 MMOL/L (24-32); eGFR 26 ML/MIN
[2020-10-20] MEDS: magnesium 4gm in 100ml NS 100 ML IV PRN (22:06)
[2020-10-21] VITALS (24 sets, daily range): BP systolic 86–95; BP diastolic 49–64
[2020-10-21] MEDS: piperacillin/tazo 3.375gm/50ml 50 ML IV SCH ×4 (00:38→23:40)
[2020-10-21] MEDS: sodium bicarbonate (8.4%) inj. 150 MEQ in dextrose 5%-water 1,000 ML IV SCH ×2 (01:30→13:31)
[2020-10-21] MEDS: midazolam 100mg in NS 100ml 100 ML IV SCH (01:30)
[2020-10-21] MEDS: DOBUTamine-DoBUTrex 500mg/D5W 250 ML IV SCH ×3 (02:40→20:58)
[2020-10-21] MEDS: EPINEPHRINE IV SCH ×5 (02:41→19:41)
[2020-10-21] MEDS: NORMAL SALINE IV SCH ×5 (02:41→19:41)
[2020-10-21 02:49] LABS: BASOPHILS % (AUTO) 0.4 % (0-1); EOSINOPHILS % (AUTO) 0.1 % (0-6); HEMATOCRIT 39.7 % (42.0-52.0); HEMOGLOBIN 13.3 g/dl (14.0-17.9); LYMPHOCYTES # (AUTO) 0.4 X10'3 (1.1-4.8); LYMPHOCYTES % (AUTO) 6.1 % (21-51); MEAN CORPUSCULAR HEMOGLOBIN 30.1 PG (27.0-31.0); MEAN CORPUSCULAR HGB CONC 33.5 g/dL (33.0-36.5); MEAN PLATELET VOLUME 8.8 FL (7.4-10.4); MONOCYTES # (AUTO) 0.2 X10'3 (0-0.9); MONOCYTES % (AUTO) 3.4 % (2-12); NEUTROPHILS # (AUTO) 6.5 X10'3 (1.8-7.7); PLATELET COUNT 157 X10'3 (140-440); RED BLOOD COUNT 4.42 X10'6 (4.70-6.10); RED CELL DISTRIBUTION WIDTH 14.2 % (11.5-14.5); WHITE BLOOD COUNT 7.2 X10'3 (4.5-11.0)
[2020-10-21 03:06] LABS: PARTIAL THROMBOPLASTIN TIME 36 SECONDS (22-32)
[2020-10-21 03:14] LABS: ALBUMIN 2.4 G/DL (3.4-5.0); ALKALINE PHOSPHATASE 107 IU/L (46-116); ANION GAP 14 (8-16); BILIRUBIN,TOTAL 2.6 MG/DL (0.1-1.0); BLOOD UREA NITROGEN 31 MG/DL (7-18); BUN/CREATININE RATIO 12.7 (5.4-32.0); CALCIUM 7.3 MG/DL (8.5-10.1); CHLORIDE 104 MMOL/L (99-107); CREATININE 2.45 MG/DL (0.60-1.10); GLUCOSE 98 MG/DL (70-104); MAGNESIUM 2.2 MG/DL (1.5-2.4); PHOSPHORUS 4.6 MG/DL (2.3-4.5); POTASSIUM 4.1 MMOL/L (3.5-5.1); SODIUM 141 MMOL/L (135-145); TOTAL CARBON DIOXIDE 23.4 MMOL/L (24-32); TOTAL PROTEIN 4.9 G/DL (6.4-8.2); eGFR 27 ML/MIN
[2020-10-21] MEDS: ipratropium/albuterol 3ml nebule NEB SCH ×6 (03:14→23:20)
[2020-10-21 03:23] LABS: ABG BASE EXCESS -2.4 mmol/L (-2.0-2.0); ABG HCO3 21.9 mmol/L (22.0-26.0); ABG OXYGEN SATURATION 92.3 % (94-97); ABG PO2 (T) 63.9 mmHg (75.0-100.0); FMetHb 0.3 % (0.0-1.5); PATIENT TEMPERATURE 36.8; PEEP 8 cm H2O; RESPIRATORY RATE 26 b/min; TIDAL VOLUME 500 mL; TOTAL HEMOGLOBIN 13.7 G/dl (14.0-18.0)
[2020-10-21 04:03] LABS: ALANINE AMINOTRANSFERASE > 7000 U/L (12-78); ASPARTATE AMINO TRANSFERASE > 7000 U/L (10-37)
[2020-10-21] MEDS: Duosol 4K/3 Ca (w/calcium) 5,000 ML HE SCH ×10 (04:07→23:43)
[2020-10-21] MEDS: vancomycin/NS 1 GM ADD-VANTAGE 250 ML IV SCH (04:09)
[2020-10-21] MEDS: vasopressin inj. 40 UNIT in normal saline 50ml IV soln 38 ML IV SCH ×2 (04:10→23:40)
[2020-10-21] MEDS: NORepinephrine inj. 32 MG in normal saline 250ml IV soln 218 ML IV SCH ×4 (04:11→20:57)
[2020-10-21 04:16] LABS: D-DIMER > 35.20 MG/L FEU (0-0.50)
[2020-10-21] MEDS: amiodarone/D5 360MG/200ML BAG 200 ML IV SCH ×4 (06:03→21:36)
--- NOTE | 2020-10-21 06:14 | NUR ---
Problems reprioritized. Patient report given, questions answered & plan of care reviewed with Donya JEAN and Emory JEAN.
[2020-10-21] MEDS: FENTANYL-0.9 % NACL/PF 100 ML IV SCH ×2 (07:46→19:25)
[2020-10-21] MEDS: losartan 25mg tablet PO SCH (07:47)
[2020-10-21] MEDS: metoprolol succinate 25mg (24-HOUR) SR. Tablet PO SCH (07:48)
[2020-10-21] MEDS: hydrocortisone sod succ/PF 100mg/2ml inj. IV SCH ×3 (07:53→19:40)
[2020-10-21] MEDS: pantoprazole 40 MG vial IV SCH (07:53)
[2020-10-21] MEDS: K and/or MAG REPLACEMENT MC SCH ×2 (07:57→20:00)
[2020-10-21 08:49] LABS: ALBUMIN 2.5 G/DL (3.4-5.0); ANION GAP 13 (8-16); BLOOD UREA NITROGEN 29 MG/DL (7-18); CALCIUM 7.3 MG/DL (8.5-10.1); CHLORIDE 105 MMOL/L (99-107); CREATININE 2.41 MG/DL (0.60-1.10); GLUCOSE 93 MG/DL (70-104); MAGNESIUM 2.1 MG/DL (1.5-2.4); PHOSPHORUS 4.6 MG/DL (2.3-4.5); POTASSIUM 4.6 MMOL/L (3.5-5.1); SODIUM 140 MMOL/L (135-145); TOTAL CARBON DIOXIDE 22.5 MMOL/L (24-32); eGFR 28 ML/MIN
[2020-10-21 09:01] LABS: BANDS% (MANUAL) 5 % (0-10); LYMPHOCYTES % (MANUAL) 6 % (21-51); METAMYLEOCYTES% (MANUAL) 1 % (0-0); MONOCYTES % (MANUAL) 2 % (2-12); NEUTROPHILS % (MANUAL) 86 % (42-75); TOTAL CELLS COUNTED 100
[2020-10-21 09:09] LABS: ABG HCO3 22.3 mmol/L (22.0-26.0); ABG OXYGEN SATURATION 95.5 % (94-97); ABG PCO2 (T) 36.2 mmHg (35.0-48.0); FCOHb 0.3 % (0.0-3.9); FMetHb 0.5 % (0.0-1.5); FO2Hb 94.7 % (94-97); PATIENT TEMPERATURE 36.7; PEEP 8 cm H2O; RESPIRATORY RATE 26 b/min; TIDAL VOLUME 500 mL; TOTAL HEMOGLOBIN 14.1 G/dl (14.0-18.0)
[2020-10-21 09:24] LABS: PLATELET ESTIMATE NORMAL
--- NOTE | 2020-10-21 10:33 | NUR ---
TF Consult: Pt remains on high dose pressors, CVVH, and MAP 66 this AM w/ trickle TF to start today per computer installation engineer. No need for phos binder w/ CVVH to assist w/ Phos correction per computer installation engineer. TF recs below using first scaled wt 104.7kg making BMI 29; will monitor for trickle tolerance and advancement as medically indicated. Rec: 1. Continuous trickle TF per MD using Vital High Protein at 10ml/hr; to provide 240ml volume, 240 kcals, 202ml free water, and 21g protein. 2. IF TF to advance; Vital High Protein at 100ml/hr goal to provide 2400ml volume, 2400 kcals, 2016ml free water, and 210g protein. 3. IF pt off CVVH consider change to Vital AF at 90ml/hr goal 4. additional water flush per computer installation engineer on CVVH 5. PALB Q /; daily wts 6. routine bowel care 7. Monitor for TF tolerance, advancement, and adjustment needs as medically indicated Addendum: 10/21/20 at [address] Amended: Links added.
[2020-10-21] MEDS ORDERED: CALCIUM GLUC 1gm/50ml NACL,iso 50 ML IV ONE (11:25)
[2020-10-21] MEDS ORDERED: magnesium hydroxide 30ml (MOM) UD suspension CORPAK PRN (12:05)
[2020-10-21] MEDS ORDERED: mag hydrox/Alum hydrox/simeth 30ml oral suspension CORPAK PRN (12:05)
[2020-10-21] MEDS ORDERED: acetaminophen 325mg/10.15ml oral unit dose solution CORPAK PRN (12:05)
[2020-10-21] MEDS ORDERED: potassium Cl 20 mEq SR tablet CORPAK PRN ×2 (12:09→12:10)
[2020-10-21 14:46] LABS: ALBUMIN 2.5 G/DL (3.4-5.0); ANION GAP 10 (8-16); BLOOD UREA NITROGEN 27 MG/DL (7-18); BUN/CREATININE RATIO 11.2 (5.4-32.0); CALCIUM 7.7 MG/DL (8.5-10.1); CHLORIDE 105 MMOL/L (99-107); CREATININE 2.41 MG/DL (0.60-1.10); GLUCOSE 95 MG/DL (70-104); PHOSPHORUS 4.4 MG/DL (2.3-4.5); POTASSIUM 5.4 MMOL/L (3.5-5.1); SODIUM 138 MMOL/L (135-145); eGFR 28 ML/MIN
[2020-10-21 14:52] LABS: TROPONIN I 0.67 NG/ML (0.0-0.05)
[2020-10-21 14:54] LABS: ABG BASE EXCESS -2.4 mmol/L (-2.0-2.0); ABG HCO3 20.7 mmol/L (22.0-26.0); ABG OXYGEN SATURATION 92.7 % (94-97); ABG PCO2 (T) 30.9 mmHg (35.0-48.0); FCOHb 0.2 % (0.0-3.9); FMetHb 0.3 % (0.0-1.5); FO2Hb 92.2 % (94-97); PATIENT TEMPERATURE 36.9; PEEP 8 cm H2O; RESPIRATORY RATE 26 b/min; TIDAL VOLUME 500 mL; TOTAL HEMOGLOBIN 14.3 G/dl (14.0-18.0)
[2020-10-21] MEDS ORDERED: heparin 10,000 units/1 ML INJ IV ONE (16:03)
[2020-10-21] MEDS: heparin 25,000 UNIT/250ml bag 250 ML IV SCH (16:41)
--- NOTE | 2020-10-21 18:18 | NUR ---
CVVH continues, attempt made to wean epi drip, goal to maintain MAP 60-65. Following labs and ABG's. Tube feeds started at 10 ml/hr.
--- NOTE | 2020-10-21 18:30 | NUR ---
Patient in room ICU 2043. I have received report from Donya JEAN and had the opportunity to ask questions and assume patient care.
[2020-10-21 20:57] LABS: ALBUMIN 2.6 G/DL (3.4-5.0); ANION GAP 9 (8-16); BLOOD UREA NITROGEN 31 MG/DL (7-18); BUN/CREATININE RATIO 11.9 (5.4-32.0); CALCIUM 7.4 MG/DL (8.5-10.1); CHLORIDE 103 MMOL/L (99-107); CREATININE 2.61 MG/DL (0.60-1.10); GLUCOSE 115 MG/DL (70-104); PHOSPHORUS 5.1 MG/DL (2.3-4.5); POTASSIUM 5.2 MMOL/L (3.5-5.1); SODIUM 135 MMOL/L (135-145); TOTAL CARBON DIOXIDE 23.3 MMOL/L (24-32); TROPONIN I 0.45 NG/ML (0.0-0.05); eGFR 26 ML/MIN
[2020-10-21] MEDS: heparin 10,000 units/1 ML INJ IV PRN (21:37)
[2020-10-22] VITALS (24 sets, daily range): BP systolic 81–96; BP diastolic 51–65
[2020-10-22] MEDS: hydrocortisone sod succ/PF 100mg/2ml inj. IV SCH ×4 (02:23→20:13)
[2020-10-22] MEDS: NORepinephrine inj. 32 MG in normal saline 250ml IV soln 218 ML IV SCH ×3 (02:44→23:51)
[2020-10-22 02:58] LABS: EOSINOPHILS % (AUTO) 0 % (0-6); HEMOGLOBIN 13.7 g/dl (14.0-17.9); MEAN CORPUSCULAR HEMOGLOBIN 29.9 PG (27.0-31.0); MONOCYTES # (AUTO) 0.3 X10'3 (0-0.9)
[2020-10-22 03:00] LABS: BASOPHILS % (AUTO) 0.2 % (0-1); HEMATOCRIT 41.3 % (42.0-52.0); LYMPHOCYTES # (AUTO) 0.2 X10'3 (1.1-4.8); LYMPHOCYTES % (AUTO) 3.8 % (21-51); MEAN CORPUSCULAR HGB CONC 33.3 g/dL (33.0-36.5); MEAN CORPUSCULAR VOLUME 89.8 FL (78-98); MEAN PLATELET VOLUME 9.1 FL (7.4-10.4); MONOCYTES % (AUTO) 4.5 % (2-12); NEUTROPHILS # (AUTO) 5.9 X10'3 (1.8-7.7); NEUTROPHILS % (AUTO) 91.5 % (42-75); PLATELET COUNT 171 X10'3 (140-440); RED CELL DISTRIBUTION WIDTH 14.8 % (11.5-14.5); WHITE BLOOD COUNT 6.4 X10'3 (4.5-11.0)
[2020-10-22 03:02] LABS: ABG BASE EXCESS -1.4 mmol/L (-2.0-2.0); ABG HCO3 22.3 mmol/L (22.0-26.0); ABG OXYGEN SATURATION 90.6 % (94-97); ABG PCO2 (T) 33.8 mmHg (35.0-48.0); ABG PO2 (T) 56.5 mmHg (75.0-100.0); FCOHb 0.3 % (0.0-3.9); FMetHb 0.3 % (0.0-1.5); FO2Hb 90.1 % (94-97); PATIENT TEMPERATURE 36.6; PEEP 8 cm H2O; RESPIRATORY RATE 22 b/min; TIDAL VOLUME 500 mL; TOTAL HEMOGLOBIN 14.3 G/dl (14.0-18.0)
[2020-10-22] MEDS: ipratropium/albuterol 3ml nebule NEB SCH ×6 (03:07→23:17)
[2020-10-22] MEDS: midazolam 100mg in NS 100ml 100 ML IV SCH (03:26)
[2020-10-22] MEDS ORDERED: VANCOMYCIN LEVEL IV ONE (03:30)
[2020-10-22 03:36] LABS: D-DIMER > 35.20 MG/L FEU (0-0.50)
[2020-10-22] MEDS: heparin 10,000 units/1 ML INJ IV PRN (03:54)
[2020-10-22 04:01] LABS: ALBUMIN 2.4 G/DL (3.4-5.0); ALBUMIN/GLOBULIN RATIO 0.9 (1.1-1.5); ALKALINE PHOSPHATASE 86 IU/L (46-116); ANION GAP 8 (8-16); BILIRUBIN,TOTAL 3.5 MG/DL (0.1-1.0); BLOOD UREA NITROGEN 30 MG/DL (7-18); BUN/CREATININE RATIO 11.9 (5.4-32.0); CALCIUM 7.4 MG/DL (8.5-10.1); CHLORIDE 105 MMOL/L (99-107); CREATININE 2.52 MG/DL (0.60-1.10); GLUCOSE 109 MG/DL (70-104); MAGNESIUM 1.9 MG/DL (1.5-2.4); PHOSPHORUS 4.2 MG/DL (2.3-4.5); POTASSIUM 5.6 MMOL/L (3.5-5.1); PREALBUMIN 15.3 MG/DL (19-36); SODIUM 137 MMOL/L (135-145); TOTAL CARBON DIOXIDE 24.4 MMOL/L (24-32); VANCOMYCIN,TROUGH 8.9 UG/ML (6.0-14.0); eGFR 27 ML/MIN
[2020-10-22] MEDS: normal saline 1000ml 1,000 ML IV SCH ×2 (04:10→23:00)
[2020-10-22 04:35] LABS: ASPARTATE AMINO TRANSFERASE 5957 U/L (10-37)
[2020-10-22 04:36] LABS: ALANINE AMINOTRANSFERASE > 7000 U/L (12-78)
[2020-10-22] MEDS: vancomycin/NS 1 GM ADD-VANTAGE 250 ML IV SCH (04:46)
[2020-10-22] MEDS: FENTANYL-0.9 % NACL/PF 100 ML IV SCH ×2 (04:47→16:27)
[2020-10-22] MEDS: Duosol 4K/3 Ca (w/calcium) 5,000 ML HE SCH ×5 (05:32→14:40)
[2020-10-22 05:36] LABS: NUCLEATED RED BLOOD CELLS 5 /100WBC (0-0); TOTAL CELLS COUNTED 100
[2020-10-22 05:37] LABS: PLATELET ESTIMATE NORMAL
--- NOTE | 2020-10-22 06:17 | NUR ---
Problems reprioritized. Patient report given, questions answered & plan of care reviewed with Donya JEAN.
[2020-10-22] MEDS ORDERED: DEXTROSE 5% IV ONE ×3 (06:30→07:30)
[2020-10-22] MEDS ORDERED: ACETYLCYSTEINE IV ONE ×3 (06:30→07:30)
[2020-10-22] MEDS ORDERED: WATER IV ONE ×3 (06:30→07:30)
[2020-10-22] MEDS: diltiazem-NS 100mg/100ml 100 ML IV SCH ×3 (07:36→21:12)
[2020-10-22] MEDS: losartan 25mg tablet CORPAK SCH (07:37)
[2020-10-22] MEDS: K and/or MAG REPLACEMENT MC SCH ×2 (07:39→21:00)
[2020-10-22] MEDS: pantoprazole 40 MG vial IV SCH (07:54)
[2020-10-22] MEDS ORDERED: vancomycin/NS 500MG ADD-VANT 100 ML IV ONE (08:00)
[2020-10-22 08:46] LABS: ALBUMIN 2.2 G/DL (3.4-5.0); ANION GAP 10 (8-16); BLOOD UREA NITROGEN 28 MG/DL (7-18); BUN/CREATININE RATIO 11.7 (5.4-32.0); CALCIUM 7.4 MG/DL (8.5-10.1); CHLORIDE 104 MMOL/L (99-107); CREATININE 2.39 MG/DL (0.60-1.10); GLUCOSE 111 MG/DL (70-104); MAGNESIUM 1.8 MG/DL (1.5-2.4); POTASSIUM 5.4 MMOL/L (3.5-5.1); SODIUM 139 MMOL/L (135-145); TOTAL CARBON DIOXIDE 24.8 MMOL/L (24-32); eGFR 28 ML/MIN
[2020-10-22 09:12] LABS: ABG BASE EXCESS -1.2 mmol/L (-2.0-2.0); ABG HCO3 23.2 mmol/L (22.0-26.0); ABG OXYGEN SATURATION 95.6 % (94-97); ABG PCO2 (T) 37.4 mmHg (35.0-48.0); ABG PO2 (T) 81.2 mmHg (75.0-100.0); FCOHb 0.3 % (0.0-3.9); FMetHb 0.2 % (0.0-1.5); FO2Hb 95.1 % (94-97); PATIENT TEMPERATURE 36.7; PEEP 8 cm H2O; RESPIRATORY RATE 18 b/min; TIDAL VOLUME 500 mL; TOTAL HEMOGLOBIN 13.9 G/dl (14.0-18.0)
[2020-10-22] MEDS: heparin 25,000 UNIT/250ml bag 250 ML IV SCH (09:51)
[2020-10-22] MEDS: piperacillin/tazo 3.375gm/50ml 50 ML IV SCH ×2 (10:08→16:08)
[2020-10-22] MEDS: methylnaltrexone br 12mg/0.6ml inj***SubQ only SQ SCH (11:13)
--- NOTE | 2020-10-22 11:22 | NUR ---
Pressors have been decreased per RN at critical care rounds. Pt tolerating trickle TF with GRV WNL. okpratibha advancing TF to goal rate, see recommendations below. LBM 10/18, d/w . Pt started on routine Colace, Lactulose, and Relistor. Will continue to follow closely. Rec: 1. Continuous Vital High Protein via OGT with 100 mL/hr goal to provide 2400 mL total volume/day, 2400 kcal, 2016 mL water, and 210 g protein. 2. Additional water flush per MD in view of CVVH 3. IF pt off CVVH consider change to Vital AF at 90ml/hr goal 4. PALB q /; daily wts 5. routine bowel care 6. Monitor for TF tolerance and adjustment needs as medically indicated Addendum: 10/22/20 at [address] Amended: Links added.
[2020-10-22] MEDS: lactulose 20gm/30ml cup CORPAK SCH ×3 (11:36→20:13)
[2020-10-22] MEDS: bicarb dialysis sol 2K+/3 Ca2+ 5,000 ML HE SCH ×9 (11:37→18:30)
[2020-10-22] MEDS: WATER IV SCH (13:18)
[2020-10-22] MEDS: ACETYLCYSTEINE IV SCH (13:18)
[2020-10-22] MEDS: DEXTROSE 5% IV SCH (13:18)
[2020-10-22 14:50] LABS: ALBUMIN 2.3 G/DL (3.4-5.0); ANION GAP 10 (8-16); BLOOD UREA NITROGEN 29 MG/DL (7-18); BUN/CREATININE RATIO 12.1 (5.4-32.0); CALCIUM 7.6 MG/DL (8.5-10.1); CHLORIDE 103 MMOL/L (99-107); CREATININE 2.39 MG/DL (0.60-1.10); GLUCOSE 135 MG/DL (70-104); MAGNESIUM 1.9 MG/DL (1.5-2.4); PHOSPHORUS 3.7 MG/DL (2.3-4.5); POTASSIUM 4.8 MMOL/L (3.5-5.1); SODIUM 138 MMOL/L (135-145); TOTAL CARBON DIOXIDE 25.5 MMOL/L (24-32); eGFR 28 ML/MIN
[2020-10-22] MEDS: DOBUTamine-DoBUTrex 500mg/D5W 250 ML IV SCH ×2 (16:28→23:50)
--- NOTE | 2020-10-22 17:18 | NUR ---
CVVH continues, amiodarone off, cardizem drip started today, bag 3 of 3 of acetylcysteine infusing, latest K 4.8, duosol changed from 4K to 2K, to notify pharmacy if K drop below 4. Remain in afib/aflutter, rate 90's to low 100's. TF left at 10 ml/hr, residuals 350-375. Bowel regimen started.
--- NOTE | 2020-10-22 18:09 | NUR ---
Problems reprioritized. Patient report given, questions answered & plan of care reviewed with TED Collins.
--- NOTE | 2020-10-22 18:23 | NUR ---
Patient in room ICU 2043. I have received report from Donya JEAN and had the opportunity to ask questions and assume patient care.
[2020-10-22] MEDS: docusate sodium 100mg/10ml UD cup CORPAK SCH (20:13)
[2020-10-22 20:53] LABS: ALBUMIN 2.3 G/DL (3.4-5.0); ANION GAP 9 (8-16); BLOOD UREA NITROGEN 28 MG/DL (7-18); BUN/CREATININE RATIO 11.7 (5.4-32.0); CALCIUM 7.7 MG/DL (8.5-10.1); CHLORIDE 102 MMOL/L (99-107); GLUCOSE 127 MG/DL (70-104); MAGNESIUM 1.9 MG/DL (1.5-2.4); PHOSPHORUS 4.1 MG/DL (2.3-4.5); POTASSIUM 4.8 MMOL/L (3.5-5.1); SODIUM 137 MMOL/L (135-145); TOTAL CARBON DIOXIDE 25.8 MMOL/L (24-32); eGFR 28 ML/MIN
--- NOTE | 2020-10-22 22:02 | NUR ---
Pt had poor O2 recovery after turning for bath/skin check. FiO2 increased to 100%, pt still was not improving. Bagged pt for several minutes, pt was easy to bag. Sats improved once he was placed back on the vent after bagging. No increased secretions. Will titrate down FiO2 as able.
[2020-10-22] MEDS: vasopressin inj. 40 UNIT in normal saline 50ml IV soln 38 ML IV SCH (23:44)
[2020-10-23] VITALS (24 sets, daily range): BP systolic 87–117; BP diastolic 49–66
[2020-10-23] MEDS: piperacillin/tazo 3.375gm/50ml 50 ML IV SCH ×3 (00:15→16:07)
[2020-10-23] MEDS: bicarb dialysis sol 2K+/3 Ca2+ 5,000 ML HE SCH ×4 (01:01→08:34)
[2020-10-23] MEDS: lactulose 20gm/30ml cup CORPAK SCH ×4 (01:45→20:28)
[2020-10-23] MEDS: hydrocortisone sod succ/PF 100mg/2ml inj. IV SCH ×4 (01:46→20:28)
[2020-10-23] MEDS: mineral oil/petrolatum ophthal oint EACHEYE PRN ×2 (01:47→20:00)
[2020-10-23 02:13] LABS: HEMOGLOBIN 13.4 g/dl (14.0-17.9); LYMPHOCYTES # (AUTO) 0.3 X10'3 (1.1-4.8); MEAN CORPUSCULAR HGB CONC 33.6 g/dL (33.0-36.5); MEAN PLATELET VOLUME 8.5 FL (7.4-10.4); MONOCYTES # (AUTO) 0.5 X10'3 (0-0.9); MONOCYTES % (AUTO) 4.9 % (2-12); NEUTROPHILS # (AUTO) 9.1 X10'3 (1.8-7.7)
[2020-10-23 02:14] LABS: BASOPHILS # (AUTO) 0.1 X10'3 (0-0.2); BASOPHILS % (AUTO) 0.7 % (0-1); EOSINOPHILS % (AUTO) 0 % (0-6); HEMATOCRIT 39.9 % (42.0-52.0); LYMPHOCYTES % (AUTO) 3.1 % (21-51); MEAN CORPUSCULAR HEMOGLOBIN 29.9 PG (27.0-31.0); NEUTROPHILS % (AUTO) 91.3 % (42-75); PLATELET COUNT 195 X10'3 (140-440); RED BLOOD COUNT 4.49 X10'6 (4.70-6.10)
[2020-10-23 02:33] LABS: ALBUMIN 2.3 G/DL (3.4-5.0); ALBUMIN/GLOBULIN RATIO 0.8 (1.1-1.5); ALKALINE PHOSPHATASE 89 IU/L (46-116); ANION GAP 9 (8-16); BILIRUBIN,TOTAL 3.5 MG/DL (0.1-1.0); BLOOD UREA NITROGEN 27 MG/DL (7-18); BUN/CREATININE RATIO 11.1 (5.4-32.0); CALCIUM 7.7 MG/DL (8.5-10.1); CHLORIDE 104 MMOL/L (99-107); CREATININE 2.43 MG/DL (0.60-1.10); GLUCOSE 122 MG/DL (70-104); MAGNESIUM 1.8 MG/DL (1.5-2.4); POTASSIUM 4.6 MMOL/L (3.5-5.1); SODIUM 138 MMOL/L (135-145); TOTAL CARBON DIOXIDE 24.8 MMOL/L (24-32); TOTAL PROTEIN 5.1 G/DL (6.4-8.2); eGFR 28 ML/MIN
[2020-10-23] MEDS: DEXTROSE 5% IV SCH ×2 (02:43→15:02)
[2020-10-23] MEDS: WATER IV SCH ×2 (02:43→15:02)
[2020-10-23] MEDS: ACETYLCYSTEINE IV SCH ×2 (02:43→15:02)
[2020-10-23 03:04] LABS: D-DIMER > 35.20 MG/L FEU (0-0.50)
[2020-10-23 03:05] LABS: ALANINE AMINOTRANSFERASE > 7000 U/L (12-78); ASPARTATE AMINO TRANSFERASE 1851 U/L (10-37)
[2020-10-23 03:35] LABS: ABG HCO3 25.7 mmol/L (22.0-26.0); ABG OXYGEN SATURATION 94.7 % (94-97); ABG PCO2 (T) 45.7 mmHg (35.0-48.0); ABG PO2 (T) 77.6 mmHg (75.0-100.0); FCOHb 0.4 % (0.0-3.9); FMetHb 0.1 % (0.0-1.5); FO2Hb 94.2 % (94-97); PATIENT TEMPERATURE 36.9; PEEP 8 cm H2O; RESPIRATORY RATE 18 b/min; TIDAL VOLUME 500 mL
[2020-10-23] MEDS: heparin 25,000 UNIT/250ml bag 250 ML IV SCH ×2 (03:37→21:51)
[2020-10-23] MEDS: ipratropium/albuterol 3ml nebule NEB SCH ×6 (03:42→23:15)
[2020-10-23 04:59] LABS: NUCLEATED RED BLOOD CELLS 4 /100WBC (0-0); TOTAL CELLS COUNTED 100
[2020-10-23 05:00] LABS: PLATELET ESTIMATE NORMAL
--- NOTE | 2020-10-23 06:21 | NUR ---
Problems reprioritized. Patient report given, questions answered & plan of care reviewed with Soraya JEAN.
[2020-10-23] MEDS: docusate sodium 100mg/10ml UD cup CORPAK SCH ×2 (07:20→20:28)
[2020-10-23] MEDS: losartan 25mg tablet CORPAK SCH (07:21)
[2020-10-23] MEDS: pantoprazole 40 MG vial IV SCH (07:21)
[2020-10-23] MEDS: NORMAL SALINE IV SCH (07:41)
[2020-10-23] MEDS: EPINEPHRINE IV SCH (07:41)
[2020-10-23] MEDS: K and/or MAG REPLACEMENT MC SCH ×2 (08:00→19:26)
[2020-10-23 08:45] LABS: ALBUMIN 2.3 G/DL (3.4-5.0); ANION GAP 9 (8-16); BLOOD UREA NITROGEN 30 MG/DL (7-18); BUN/CREATININE RATIO 12.4 (5.4-32.0); CALCIUM 7.9 MG/DL (8.5-10.1); CHLORIDE 102 MMOL/L (99-107); CREATININE 2.42 MG/DL (0.60-1.10); GLUCOSE 128 MG/DL (70-104); MAGNESIUM 1.9 MG/DL (1.5-2.4); PHOSPHORUS 3.8 MG/DL (2.3-4.5); POTASSIUM 4.3 MMOL/L (3.5-5.1); SODIUM 138 MMOL/L (135-145); TOTAL CARBON DIOXIDE 27.4 MMOL/L (24-32); eGFR 28 ML/MIN
[2020-10-23] MEDS: DOBUTamine-DoBUTrex 500mg/D5W 250 ML IV SCH ×2 (09:43→21:33)
--- NOTE | 2020-10-23 10:42 | NUR ---
MD aware of patient's current lab values, condition, vitals and current medications. New orders received for 4K duosol, ammonia, increase of ultra filtrate to 50 and decrease dobutamine to 7.5. Family at bedside. Addendum: 10/23/20 at 1045 by Soraya Holley RN MD aware of patient's continued high residuals. patient has bowel sounds
[2020-10-23] MEDS: diltiazem-NS 100mg/100ml 100 ML IV SCH (11:15)
--- NOTE | 2020-10-23 11:15 | NUR ---
provided MRSA education to family and educated them on contact precautions.
[2020-10-23] MEDS: NORepinephrine inj. 32 MG in normal saline 250ml IV soln 218 ML IV SCH ×2 (11:16→23:53)
[2020-10-23] MEDS: Duosol 4K/3 Ca (w/calcium) 5,000 ML HE SCH ×6 (11:26→23:59)
[2020-10-23 14:11] LABS: ALBUMIN 2.2 G/DL (3.4-5.0); ANION GAP 8 (8-16); BLOOD UREA NITROGEN 27 MG/DL (7-18); CALCIUM 7.8 MG/DL (8.5-10.1); CHLORIDE 103 MMOL/L (99-107); CREATININE 2.46 MG/DL (0.60-1.10); GLUCOSE 119 MG/DL (70-104); MAGNESIUM 1.8 MG/DL (1.5-2.4); PHOSPHORUS 2.9 MG/DL (2.3-4.5); POTASSIUM 4.1 MMOL/L (3.5-5.1); SODIUM 138 MMOL/L (135-145); TOTAL CARBON DIOXIDE 27.2 MMOL/L (24-32); eGFR 27 ML/MIN
[2020-10-23] MEDS: midazolam 100mg in NS 100ml 100 ML IV SCH (16:00)
--- NOTE | 2020-10-23 18:18 | NUR ---
Patient report given, questions answered & plan of care reviewed with Jessica JEAN.
--- NOTE | 2020-10-23 18:18 | NUR ---
Patient in room ICU 2043. I have received report from TED Leal and had the opportunity to ask questions and assume patient care. regenerator operator at bedside changing filter on CVVH machine. Patient is intubated on the ventilator A/C VC FiO2 75% PEEP 10 respiratory rate 20. SpO2 97%. Patient is currently not on sedation. See IV spreadsheet for current IV infusion.
[2020-10-23] MEDS: normal saline 1000ml 1,000 ML IV SCH (20:10)
[2020-10-23 20:52] LABS: ALBUMIN 2.2 G/DL (3.4-5.0); ANION GAP 8 (8-16); BLOOD UREA NITROGEN 30 MG/DL (7-18); BUN/CREATININE RATIO 12.1 (5.4-32.0); CALCIUM 7.9 MG/DL (8.5-10.1); CHLORIDE 103 MMOL/L (99-107); CREATININE 2.48 MG/DL (0.60-1.10); GLUCOSE 119 MG/DL (70-104); MAGNESIUM 1.8 MG/DL (1.5-2.4); PHOSPHORUS 2.4 MG/DL (2.3-4.5); SODIUM 137 MMOL/L (135-145); TOTAL CARBON DIOXIDE 25.9 MMOL/L (24-32); eGFR 27 ML/MIN
[2020-10-24] VITALS (24 sets, daily range): BP systolic 92–130; BP diastolic 53–74
[2020-10-24] MEDS: piperacillin/tazo 3.375gm/50ml 50 ML IV SCH ×2 (00:20→07:35)
[2020-10-24] MEDS: Duosol 4K/3 Ca (w/calcium) 5,000 ML HE SCH ×15 (01:28→21:42)
[2020-10-24] MEDS: WATER IV SCH ×2 (01:33→13:22)
[2020-10-24] MEDS: ACETYLCYSTEINE IV SCH ×2 (01:33→13:22)
[2020-10-24] MEDS: DEXTROSE 5% IV SCH ×2 (01:33→13:22)
[2020-10-24 01:52] LABS: BASOPHILS % (AUTO) 0.1 % (0-1); EOSINOPHILS % (AUTO) 0 % (0-6); HEMATOCRIT 40.8 % (42.0-52.0); HEMOGLOBIN 13.6 g/dl (14.0-17.9); LYMPHOCYTES # (AUTO) 0.3 X10'3 (1.1-4.8); LYMPHOCYTES % (AUTO) 2.1 % (21-51); MEAN CORPUSCULAR HEMOGLOBIN 29.8 PG (27.0-31.0); MEAN CORPUSCULAR HGB CONC 33.3 g/dL (33.0-36.5); MEAN CORPUSCULAR VOLUME 89.5 FL (78-98); MEAN PLATELET VOLUME 8.8 FL (7.4-10.4); MONOCYTES # (AUTO) 0.8 X10'3 (0-0.9); MONOCYTES % (AUTO) 7.1 % (2-12); NEUTROPHILS # (AUTO) 10.8 X10'3 (1.8-7.7); NEUTROPHILS % (AUTO) 90.7 % (42-75); PLATELET COUNT 112 X10'3 (140-440); RED BLOOD COUNT 4.56 X10'6 (4.70-6.10); WHITE BLOOD COUNT 11.9 X10'3 (4.5-11.0)
[2020-10-24 01:56] LABS: ALBUMIN 2.3 G/DL (3.4-5.0); ANION GAP 3 (8-16); BLOOD UREA NITROGEN 28 MG/DL (7-18); BUN/CREATININE RATIO 11.8 (5.4-32.0); CALCIUM 8.2 MG/DL (8.5-10.1); CHLORIDE 102 MMOL/L (99-107); CREATININE 2.37 MG/DL (0.60-1.10); GLUCOSE 118 MG/DL (70-104); MAGNESIUM 1.8 MG/DL (1.5-2.4); POTASSIUM 3.7 MMOL/L (3.5-5.1); SODIUM 133 MMOL/L (135-145); TOTAL CARBON DIOXIDE 27.8 MMOL/L (24-32); eGFR 29 ML/MIN
--- NOTE | 2020-10-24 02:00 | NUR ---
Patient waking up, opens eyes spontaneously, will nod his head "yes" that he can hear me. Patient nods head "no" when asked to move his fingers and squeeze fingers. Patient is able to move his legs and upper extremities spontaneously when agitated when coughing. Patient requires sedation be turned back on with the occasional bolus to maintain CVVH. Patient high pressure on ventilator with respiratory rate 22-23. Patient with improved compliance with ventilator after sedation.
[2020-10-24] MEDS: hydrocortisone sod succ/PF 100mg/2ml inj. IV SCH ×4 (02:47→20:13)
[2020-10-24] MEDS: lactulose 20gm/30ml cup CORPAK SCH ×4 (02:47→20:13)
[2020-10-24] MEDS: vasopressin inj. 40 UNIT in normal saline 50ml IV soln 38 ML IV SCH (02:54)
[2020-10-24] MEDS: midazolam 100mg in NS 100ml 100 ML IV SCH ×2 (03:02→19:06)
[2020-10-24 03:15] LABS: TOTAL CELLS COUNTED 100
[2020-10-24 03:18] LABS: PLATELET ESTIMATE DECREASED
[2020-10-24] MEDS: ipratropium/albuterol 3ml nebule NEB SCH ×6 (03:20→22:29)
[2020-10-24] MEDS: potassium Cl 40MEQ/250ML bag 270 ML IV PRN (04:00)
--- NOTE | 2020-10-24 04:00 | NUR ---
Morning rounds with Dr. Kim. Patient labs, ventilator settings, and current IV infusions reviewed. Plan of care reviewed. MD made aware of high residuals. MD to place order for Reglan, and will renew restraints.
[2020-10-24 04:22] LABS: ABG BASE EXCESS 2.5 mmol/L (-2.0-2.0); ABG HCO3 25.9 mmol/L (22.0-26.0); ABG OXYGEN SATURATION 98.1 % (94-97); ABG PCO2 (T) 34.6 mmHg (35.0-48.0); FCOHb 0.2 % (0.0-3.9); FMetHb 0.3 % (0.0-1.5); FO2Hb 97.6 % (94-97); PEEP 10 cm H2O; RESPIRATORY RATE 20 b/min; TIDAL VOLUME 500 mL; TOTAL HEMOGLOBIN 13.8 G/dl (14.0-18.0)
[2020-10-24] MEDS: diltiazem-NS 100mg/100ml 100 ML IV SCH (05:49)
--- NOTE | 2020-10-24 06:17 | NUR ---
Problems reprioritized. Patient report given, questions answered & plan of care reviewed with TED Leal.
--- NOTE | 2020-10-24 06:17 | NUR ---
I have received report from Jessica JEAN and had the opportunity to ask questions and assume patient care.
[2020-10-24] MEDS: losartan 25mg tablet CORPAK SCH (07:21)
[2020-10-24] MEDS: methylnaltrexone br 12mg/0.6ml inj***SubQ only SQ SCH (07:34)
[2020-10-24] MEDS: metoclopramide 5 mg/ml inj IV SCH ×3 (07:34→20:13)
[2020-10-24] MEDS: docusate sodium 100mg/10ml UD cup CORPAK SCH ×2 (07:34→20:13)
[2020-10-24] MEDS: pantoprazole 40 MG vial IV SCH (07:34)
[2020-10-24] MEDS: mineral oil/petrolatum ophthal oint EACHEYE PRN ×2 (07:35→22:51)
[2020-10-24] MEDS: K and/or MAG REPLACEMENT MC SCH ×2 (08:00→19:29)
[2020-10-24 08:27] LABS: ANION GAP 7 (8-16); BLOOD UREA NITROGEN 28 MG/DL (7-18); BUN/CREATININE RATIO 11.7 (5.4-32.0); CALCIUM 7.8 MG/DL (8.5-10.1); CHLORIDE 106 MMOL/L (99-107); CREATININE 2.39 MG/DL (0.60-1.10); GLUCOSE 105 MG/DL (70-104); MAGNESIUM 1.8 MG/DL (1.5-2.4); PHOSPHORUS 2.1 MG/DL (2.3-4.5); POTASSIUM 4.1 MMOL/L (3.5-5.1); SODIUM 139 MMOL/L (135-145); TOTAL CARBON DIOXIDE 25.6 MMOL/L (24-32); eGFR 28 ML/MIN
[2020-10-24] MEDS: DOBUTamine-DoBUTrex 500mg/D5W 250 ML IV SCH ×2 (09:39→22:43)
--- NOTE | 2020-10-24 10:00 | NUR ---
MD aware of abnormal labs and and changes in patient's condition. New orders received for tubefeeding, antibiotics and to discontinue CVVH once machine goes down.
[2020-10-24] MEDS: cefepime 1GM/NS ADD-VANTAGE 100 ML IV SCH (10:19)
[2020-10-24] MEDS: FENTANYL-0.9 % NACL/PF 100 ML IV SCH (10:20)
[2020-10-24] MEDS ORDERED: lactulose 20gm/30ml cup CORPAK PRN (10:25)
[2020-10-24 14:30] LABS: ANION GAP 8 (8-16); BLOOD UREA NITROGEN 27 MG/DL (7-18); BUN/CREATININE RATIO 11.9 (5.4-32.0); CALCIUM 7.8 MG/DL (8.5-10.1); CHLORIDE 105 MMOL/L (99-107); CREATININE 2.27 MG/DL (0.60-1.10); GLUCOSE 108 MG/DL (70-104); MAGNESIUM 1.7 MG/DL (1.5-2.4); PHOSPHORUS 2.4 MG/DL (2.3-4.5); POTASSIUM 3.9 MMOL/L (3.5-5.1); SODIUM 139 MMOL/L (135-145); TOTAL CARBON DIOXIDE 25.9 MMOL/L (24-32); eGFR 30 ML/MIN
[2020-10-24] MEDS: normal saline 1000ml 1,000 ML IV SCH (16:10)
[2020-10-24] MEDS: heparin 25,000 UNIT/250ml bag 250 ML IV SCH (16:24)
--- NOTE | 2020-10-24 18:18 | NUR ---
Patient in room ICU 2043. I have received report from TED Leal and had the opportunity to ask questions and assume patient care.
--- NOTE | 2020-10-24 18:19 | NUR ---
Patient report given, questions answered & plan of care reviewed with Jessica JEAN.
[2020-10-24 20:55] LABS: ANION GAP 7 (8-16); BLOOD UREA NITROGEN 26 MG/DL (7-18); BUN/CREATININE RATIO 11.6 (5.4-32.0); CALCIUM 7.9 MG/DL (8.5-10.1); CHLORIDE 105 MMOL/L (99-107); CREATININE 2.25 MG/DL (0.60-1.10); GLUCOSE 111 MG/DL (70-104); MAGNESIUM 1.7 MG/DL (1.5-2.4); PHOSPHORUS 1.9 MG/DL (2.3-4.5); POTASSIUM 4.1 MMOL/L (3.5-5.1); SODIUM 138 MMOL/L (135-145); TOTAL CARBON DIOXIDE 25.9 MMOL/L (24-32); eGFR 30 ML/MIN
[2020-10-24] MEDS: magnesium 4gm in 100ml NS 100 ML IV PRN (21:22)
--- NOTE | 2020-10-24 22:30 | NUR ---
Rica hugger blanket applied to patient.
[2020-10-24] MEDS: NORepinephrine inj. 32 MG in normal saline 250ml IV soln 218 ML IV SCH (22:36)
--- NOTE | 2020-10-24 23:37 | NUR ---
Patient with CVVH in progress. Patient is intubated and sedated current FiO2 55% PEEP 10, rate of 18. Patient is waking up, opens eyes spontaneously, has strong cough and will attempt to sit up and bend his right leg. Patient requires additional boluses of Versed to maintain CVVH. Patient rolled for bed bath, CVVH alarming, unable to photograph wound on bottom.
[2020-10-25] VITALS (24 sets, daily range): BP systolic 96–125; BP diastolic 52–99
--- NOTE | 2020-10-25 01:25 | NUR ---
CVVH machine is down. Tulio catheter flushed with saline. Blood return was not possible. Per Dr. Gibbons note and order CVVH not resumed at this time. Dr. Frances called for order for heparin for Tulio catheter. to place order for heparin.
[2020-10-25] MEDS ORDERED: heparin 10,000 units/1 ML INJ HE ONE (01:40)
[2020-10-25] MEDS: diltiazem-NS 100mg/100ml 100 ML IV SCH (02:11)
[2020-10-25] MEDS: metoclopramide 5 mg/ml inj IV SCH ×4 (02:18→20:13)
[2020-10-25] MEDS: hydrocortisone sod succ/PF 100mg/2ml inj. IV SCH ×4 (02:18→20:14)
[2020-10-25] MEDS: lactulose 20gm/30ml cup CORPAK SCH ×4 (02:18→20:13)
[2020-10-25 03:08] LABS: ANION GAP 9 (8-16); BLOOD UREA NITROGEN 29 MG/DL (7-18); BUN/CREATININE RATIO 11.9 (5.4-32.0); CHLORIDE 105 MMOL/L (99-107); CREATININE 2.44 MG/DL (0.60-1.10); GLUCOSE 112 MG/DL (70-104); MAGNESIUM 2.5 MG/DL (1.5-2.4); POTASSIUM 4.1 MMOL/L (3.5-5.1); SODIUM 139 MMOL/L (135-145); TOTAL CARBON DIOXIDE 25.5 MMOL/L (24-32); eGFR 28 ML/MIN
[2020-10-25] MEDS: Duosol 4K/3 Ca (w/calcium) 5,000 ML HE SCH ×6 (03:09→12:21)
[2020-10-25 03:19] LABS: BASOPHILS % (AUTO) 0.1 % (0-1); EOSINOPHILS % (AUTO) 0 % (0-6); HEMATOCRIT 39.9 % (42.0-52.0); HEMOGLOBIN 13.1 g/dl (14.0-17.9); LYMPHOCYTES # (AUTO) 0.3 X10'3 (1.1-4.8); LYMPHOCYTES % (AUTO) 2.5 % (21-51); MEAN CORPUSCULAR HEMOGLOBIN 29.4 PG (27.0-31.0); MEAN CORPUSCULAR HGB CONC 32.9 g/dL (33.0-36.5); MEAN CORPUSCULAR VOLUME 89.3 FL (78-98); MEAN PLATELET VOLUME 8.6 FL (7.4-10.4); MONOCYTES # (AUTO) 1.1 X10'3 (0-0.9); MONOCYTES % (AUTO) 9.5 % (2-12); NEUTROPHILS # (AUTO) 9.8 X10'3 (1.8-7.7); NEUTROPHILS % (AUTO) 87.9 % (42-75); PLATELET COUNT 76 X10'3 (140-440); RED BLOOD COUNT 4.47 X10'6 (4.70-6.10); WHITE BLOOD COUNT 11.2 X10'3 (4.5-11.0)
[2020-10-25] MEDS: ipratropium/albuterol 3ml nebule NEB SCH ×6 (03:26→23:11)
[2020-10-25] MEDS ORDERED: VANCOMYCIN LEVEL IV ONE (03:30)
[2020-10-25 03:37] LABS: ABG BASE EXCESS 0.8 mmol/L (-2.0-2.0); ABG HCO3 24.3 mmol/L (22.0-26.0); ABG PCO2 (T) 34.7 mmHg (35.0-48.0); ABG PO2 (T) 74.8 mmHg (75.0-100.0); FCOHb 0.1 % (0.0-3.9); FMetHb 0.3 % (0.0-1.5); FO2Hb 95.6 % (94-97); PATIENT TEMPERATURE 36.5; PEEP 10 cm H2O; RESPIRATORY RATE 18 b/min; TIDAL VOLUME 500 mL; TOTAL HEMOGLOBIN 13.5 G/dl (14.0-18.0)
[2020-10-25] MEDS ORDERED: heparin 1,000 units/ml 10ml inj HE ONE ×2 (04:15)
[2020-10-25 04:18] LABS: PLATELET ESTIMATE DECREASED; TOTAL CELLS COUNTED 100
[2020-10-25] MEDS: mineral oil/petrolatum ophthal oint EACHEYE PRN ×2 (04:18→08:07)
[2020-10-25 04:19] LABS: BURR CELLS 1+
--- NOTE | 2020-10-25 07:02 | NUR ---
Patient in room ICU 2043. I have received report from Jessica JEAN and had the opportunity to ask questions and assume patient care. Addendum: 10/25/20 at 0703 by Delfina Funez RN Amended: Links added.
[2020-10-25] MEDS: K and/or MAG REPLACEMENT MC SCH ×2 (08:00→20:00)
[2020-10-25] MEDS: losartan 25mg tablet CORPAK SCH (08:00)
[2020-10-25] MEDS: pantoprazole 40 MG vial IV SCH (08:07)
[2020-10-25] MEDS: docusate sodium 100mg/10ml UD cup CORPAK SCH ×2 (08:07→20:13)
[2020-10-25] MEDS: cefepime 1GM/NS ADD-VANTAGE 100 ML IV SCH (08:07)
[2020-10-25] MEDS: DOBUTamine-DoBUTrex 500mg/D5W 250 ML IV SCH ×2 (08:40→20:13)
[2020-10-25] MEDS: heparin 25,000 UNIT/250ml bag 250 ML IV SCH (09:59)
--- NOTE | 2020-10-25 10:10 | NUR ---
CVVH down since night stocker at 0125. Will notify Dr. Gibbons when he is done with his emergent procedure on another pt.
--- NOTE | 2020-10-25 10:38 | NUR ---
Sister here to visit.
--- NOTE | 2020-10-25 10:44 | NUR ---
F/u 10/25: Pt TF advanced to 70ml/hr 10/22 however subsequent GRVs 550ml that night, 650ml /, and 470ml GRV last night resulted in TF being held vs run at 10ml/hr past 3 days. TF increased to 20ml/hr yesterday per dispute specialist. Pt no BM since admit 7 days likely impacting TF tolerance. Pt receiving routine reglan, relistor, colace, and Q6H lactulose at this time. Will monitor for TF tolerance and advancement as medically indicated. IF pt to continue EN intolerance may require custom PN to meet protein needs on CVVH. Rec: 1. Continuous Vital High Protein via OGT with 100 mL/hr goal to provide 2400 mL total volume/day, 2400 kcal, 2016 mL water, and 210 g protein. 2. Additional water flush per MD in view of CVVH 3. IF pt off CVVH consider change to Vital AF at 90ml/hr goal 4. PALB q /; daily wts 5. routine bowel care 6. Monitor for TF tolerance and adjustment needs as medically indicated 7. IF continues to not tolerate TF w/ no BM consider custom PN to meet needs on vent/CVVH Addendum: 10/25/20 at [address] Amended: Links added.
--- NOTE | 2020-10-25 11:13 | NUR ---
NICHOLAS CRUZ Addendum: 10/25/20 at 1117 by Delfina Funez RN NICHOLAS NOTE: DC Heparin gtt after VQ scan Start PO Cardizem (OGT), dc gtt DC CVVH, start HD Monday Dc Cefepime Admininster 2 Fleets ememas Obtain bilat. LE vascular studies
[2020-10-25] MEDS: midazolam 100mg in NS 100ml 100 ML IV SCH ×2 (11:59→22:39)
--- NOTE | 2020-10-25 12:00 | NUR ---
To [facility] for almost one hour for VQ scan.
[2020-10-25] MEDS: normal saline 1000ml 1,000 ML IV SCH (12:54)
[2020-10-25] MEDS ORDERED: diltiazem 60mg tablet PO SCH (13:00)
[2020-10-25] MEDS ORDERED: diltiazem 60mg tablet OGT SCH (13:00)
[2020-10-25] MEDS: diltiazem 30mg tablet PO SCH ×2 (13:43→21:00)
--- NOTE | 2020-10-25 14:59 | NUR ---
Enema given per Dr. Gibbons's order.
[2020-10-25] MEDS: FENTANYL-0.9 % NACL/PF 100 ML IV SCH (15:12)
--- NOTE | 2020-10-25 18:26 | NUR ---
Problems reprioritized. Patient report given, questions answered & plan of care reviewed with Rinku JEAN.
[2020-10-26] VITALS (24 sets, daily range): BP systolic 92–135; BP diastolic 51–79
[2020-10-26] MEDS: hydrocortisone sod succ/PF 100mg/2ml inj. IV SCH ×4 (02:08→20:25)
[2020-10-26] MEDS: metoclopramide 5 mg/ml inj IV SCH ×4 (02:08→20:00)
[2020-10-26] MEDS: lactulose 20gm/30ml cup CORPAK SCH ×4 (02:08→20:00)
[2020-10-26 02:57] LABS: BASOPHILS % (AUTO) 0 % (0-1); EOSINOPHILS % (AUTO) 0 % (0-6); HEMATOCRIT 35.5 % (42.0-52.0); HEMOGLOBIN 11.8 g/dl (14.0-17.9); LYMPHOCYTES # (AUTO) 0.2 X10'3 (1.1-4.8); MEAN CORPUSCULAR HEMOGLOBIN 29.7 PG (27.0-31.0); MEAN CORPUSCULAR HGB CONC 33.4 g/dL (33.0-36.5); MEAN CORPUSCULAR VOLUME 89.1 FL (78-98); MEAN PLATELET VOLUME 8.4 FL (7.4-10.4); MONOCYTES # (AUTO) 1.2 X10'3 (0-0.9); MONOCYTES % (AUTO) 10.1 % (2-12); NEUTROPHILS # (AUTO) 10.4 X10'3 (1.8-7.7); NEUTROPHILS % (AUTO) 87.9 % (42-75); PLATELET COUNT 78 X10'3 (140-440); RED BLOOD COUNT 3.99 X10'6 (4.70-6.10); RED CELL DISTRIBUTION WIDTH 15.3 % (11.5-14.5); WHITE BLOOD COUNT 11.8 X10'3 (4.5-11.0)
[2020-10-26] MEDS: vasopressin inj. 40 UNIT in normal saline 50ml IV soln 38 ML IV SCH (02:59)
[2020-10-26 03:05] LABS: ANION GAP 13 (8-16); BLOOD UREA NITROGEN 59 MG/DL (7-18); BUN/CREATININE RATIO 12.7 (5.4-32.0); CALCIUM 7.8 MG/DL (8.5-10.1); CHLORIDE 104 MMOL/L (99-107); CREATININE 4.63 MG/DL (0.60-1.10); GLUCOSE 105 MG/DL (70-104); PHOSPHORUS 3.1 MG/DL (2.3-4.5); POTASSIUM 4.3 MMOL/L (3.5-5.1); SODIUM 139 MMOL/L (135-145); TOTAL CARBON DIOXIDE 22.4 MMOL/L (24-32); eGFR 13 ML/MIN
[2020-10-26 03:07] LABS: VANCOMYCIN,TROUGH 29.3 UG/ML (6.0-14.0)
[2020-10-26] MEDS ORDERED: VANCOMYCIN LEVEL IV ONE (03:30)
[2020-10-26] MEDS: ipratropium/albuterol 3ml nebule NEB SCH ×6 (03:33→23:13)
[2020-10-26 03:46] LABS: ABG BASE EXCESS -0.9 mmol/L (-2.0-2.0); ABG HCO3 23.2 mmol/L (22.0-26.0); ABG OXYGEN SATURATION 97.8 % (94-97); ABG PO2 (T) 105.5 mmHg (75.0-100.0); FCOHb 0.3 % (0.0-3.9); FMetHb 0.4 % (0.0-1.5); FO2Hb 97.1 % (94-97); PATIENT TEMPERATURE 36.7; PEEP 10 cm H2O; RESPIRATORY RATE 18 b/min; TIDAL VOLUME 500 mL; TOTAL HEMOGLOBIN 12.7 G/dl (14.0-18.0)
[2020-10-26] MEDS: NORepinephrine inj. 32 MG in normal saline 250ml IV soln 218 ML IV SCH (04:35)
[2020-10-26 06:02] LABS: TOTAL CELLS COUNTED 100
[2020-10-26 06:03] LABS: PLATELET ESTIMATE DECREASED
[2020-10-26 06:05] LABS: BURR CELLS 1+
--- NOTE | 2020-10-26 06:30 | NUR ---
Problems reprioritized. Patient report given, questions answered & plan of care reviewed with Radha JEAN.
[2020-10-26] MEDS ORDERED: vancomycin/NS 1 GM ADD-VANTAGE 250 ML X 1 DOSE IV PRN (06:35)
--- NOTE | 2020-10-26 07:05 | NUR ---
Patient in room ICU 2043. I have received report from Rinku JEAN and had the opportunity to ask questions and assume patient care.
[2020-10-26] MEDS: docusate sodium 100mg/10ml UD cup CORPAK SCH ×2 (07:50→20:00)
[2020-10-26] MEDS: methylnaltrexone br 12mg/0.6ml inj***SubQ only SQ SCH (07:51)
[2020-10-26] MEDS: losartan 25mg tablet CORPAK SCH (07:51)
[2020-10-26] MEDS: pantoprazole 40 MG vial IV SCH (07:51)
[2020-10-26] MEDS: diltiazem 30mg tablet PO SCH ×3 (07:52→21:00)
[2020-10-26] MEDS: normal saline 1000ml 1,000 ML IV SCH (08:27)
[2020-10-26] MEDS: K and/or MAG REPLACEMENT MC SCH ×2 (08:27→20:00)
[2020-10-26] MEDS: DOBUTamine-DoBUTrex 500mg/D5W 250 ML IV SCH (08:51)
[2020-10-26] MEDS: midazolam 100mg in NS 100ml 100 ML IV SCH ×2 (10:21→20:40)
[2020-10-26] MEDS: FENTANYL-0.9 % NACL/PF 100 ML IV SCH (10:21)
[2020-10-26] MEDS ORDERED: normal saline 1000ml 250 ML IV PRN (12:30)
[2020-10-26] MEDS ORDERED: heparin 1,000unit/ml 10ml vial 10 ML IV ONE (12:30)
[2020-10-26] MEDS ORDERED: heparin 1,000 units/ml 10ml inj HE ONE ×2 (12:35)
--- NOTE | 2020-10-26 16:58 | NUR ---
called Dr. Gibbons informed him that patient is now in A flutter with a rate between 101-115 he stated that he is fine with the rate and rythm and stated to monitor. No new orders at this time
--- NOTE | 2020-10-26 18:13 | NUR ---
Problems reprioritized. Patient report given, questions answered & plan of care reviewed with Rinku JEAN.
--- NOTE | 2020-10-26 18:13 | NUR ---
patient converted to SR @0610
--- NOTE | 2020-10-26 18:31 | NUR ---
Patient in room ICU 2043. I have received report from Radha JEAN and had the opportunity to ask questions and assume patient care.
[2020-10-27] VITALS (23 sets, daily range): BP systolic 89–132; BP diastolic 52–75
[2020-10-27] MEDS: FENTANYL-0.9 % NACL/PF 100 ML IV SCH ×3 (01:48→16:18)
[2020-10-27] MEDS: lactulose 20gm/30ml cup CORPAK SCH ×4 (02:00→20:20)
[2020-10-27] MEDS: metoclopramide 5 mg/ml inj IV SCH ×4 (02:00→20:20)
[2020-10-27] MEDS: hydrocortisone sod succ/PF 100mg/2ml inj. IV SCH ×4 (02:11→20:20)
[2020-10-27] MEDS: VANCOMYCIN LEVEL IV SCH (03:00)
[2020-10-27 03:11] LABS: ALBUMIN 1.9 G/DL (3.4-5.0); ANION GAP 10 (8-16); BLOOD UREA NITROGEN 71 MG/DL (7-18); BUN/CREATININE RATIO 13.3 (5.4-32.0); CALCIUM 7.8 MG/DL (8.5-10.1); CHLORIDE 103 MMOL/L (99-107); CREATININE 5.35 MG/DL (0.60-1.10); GLUCOSE 107 MG/DL (70-104); POTASSIUM 4.3 MMOL/L (3.5-5.1); SODIUM 137 MMOL/L (135-145); TOTAL CARBON DIOXIDE 23.6 MMOL/L (24-32); VANCOMYCIN,RANDOM 22.8 UG/ML; eGFR 11 ML/MIN
[2020-10-27] MEDS: ipratropium/albuterol 3ml nebule NEB SCH ×6 (03:15→22:51)
[2020-10-27 03:21] LABS: BASOPHILS % (AUTO) 0.1 % (0-1); EOSINOPHILS % (AUTO) 0 % (0-6); HEMATOCRIT 34.7 % (42.0-52.0); HEMOGLOBIN 11.8 g/dl (14.0-17.9); LYMPHOCYTES # (AUTO) 0.1 X10'3 (1.1-4.8); LYMPHOCYTES % (AUTO) 1.2 % (21-51); MEAN CORPUSCULAR HEMOGLOBIN 29.5 PG (27.0-31.0); MEAN CORPUSCULAR HGB CONC 33.9 g/dL (33.0-36.5); MEAN CORPUSCULAR VOLUME 87.1 FL (78-98); MEAN PLATELET VOLUME 8.4 FL (7.4-10.4); MONOCYTES # (AUTO) 1.3 X10'3 (0-0.9); MONOCYTES % (AUTO) 10.9 % (2-12); NEUTROPHILS # (AUTO) 10.3 X10'3 (1.8-7.7); NEUTROPHILS % (AUTO) 87.8 % (42-75); PLATELET COUNT 80 X10'3 (140-440); RED BLOOD COUNT 3.99 X10'6 (4.70-6.10); RED CELL DISTRIBUTION WIDTH 14.6 % (11.5-14.5); WHITE BLOOD COUNT 11.7 X10'3 (4.5-11.0)
[2020-10-27 03:37] LABS: ABG BASE EXCESS -1.3 mmol/L (-2.0-2.0); ABG HCO3 22.9 mmol/L (22.0-26.0); ABG OXYGEN SATURATION 96.4 % (94-97); ABG PCO2 (T) 36.3 mmHg (35.0-48.0); ABG PO2 (T) 85.4 mmHg (75.0-100.0); FCOHb 0.1 % (0.0-3.9); FMetHb 0.4 % (0.0-1.5); FO2Hb 95.9 % (94-97); PATIENT TEMPERATURE 36.5; PEEP 8 cm H2O; RESPIRATORY RATE 18 b/min; TIDAL VOLUME 500 mL; TOTAL HEMOGLOBIN 12.8 G/dl (14.0-18.0)
[2020-10-27] MEDS: normal saline 1000ml 1,000 ML IV SCH (04:10)
[2020-10-27] MEDS: DOBUTamine-DoBUTrex 500mg/D5W 250 ML IV SCH ×3 (04:12→21:21)
[2020-10-27] MEDS: midazolam 100mg in NS 100ml 100 ML IV SCH ×2 (06:02→16:19)
--- NOTE | 2020-10-27 06:15 | NUR ---
Patient in room ICU 2043. I have received report from Rinku JEAN and had the opportunity to ask questions and assume patient care.
--- NOTE | 2020-10-27 06:23 | NUR ---
Problems reprioritized. Patient report given, questions answered & plan of care reviewed with Radha and César JEAN.
[2020-10-27] MEDS: docusate sodium 100mg/10ml UD cup CORPAK SCH ×2 (07:52→20:20)
[2020-10-27] MEDS: diltiazem 30mg tablet PO SCH ×3 (07:52→20:20)
[2020-10-27] MEDS: losartan 25mg tablet CORPAK SCH (07:53)
[2020-10-27] MEDS: pantoprazole 40 MG vial IV SCH (07:54)
[2020-10-27] MEDS: K and/or MAG REPLACEMENT MC SCH ×2 (08:00→20:00)
[2020-10-27 08:26] LABS: ALBUMIN/GLOBULIN RATIO 0.7 (1.1-1.5); ALKALINE PHOSPHATASE 114 IU/L (46-116); ASPARTATE AMINO TRANSFERASE 53 U/L (10-37); BILIRUBIN,DIRECT 1.3 MG/DL (0-0.3); BILIRUBIN,TOTAL 1.8 MG/DL (0.1-1.0); TOTAL PROTEIN 4.7 G/DL (6.4-8.2)
[2020-10-27 08:35] LABS: ALANINE AMINOTRANSFERASE 1668 U/L (12-78)
[2020-10-27] MEDS ORDERED: albumin (human) 25% 100ml IV 100 ML IV PRN (09:45)
[2020-10-27] MEDS ORDERED: heparin 1,000 units/ml 10ml inj IV ONE (09:45)
[2020-10-27] MEDS ORDERED: heparin 1,000unit/ml 10ml vial 10 ML IV ONE (09:45)
[2020-10-27] MEDS ORDERED: heparin 1,000 units/ml 10ml inj HE ONE ×2 (09:50)
[2020-10-27 11:31] LABS: HBSAG SCREEN Negative (Negative)
--- NOTE | 2020-10-27 11:35 | NUR ---
MD Dr. Trinh at bedside. Reviewed pt and orders received.
--- NOTE | 2020-10-27 15:56 | NUR ---
Pt Cleaned Pt turned and linen changed. Sm smear of BM at rectum - cleaned. Skin looked good on back and buttocks. Sm OptiFoam at buttock w/date of 10/25. Rectal tube in place w/minimal output. Versed bolus before turning due to agitation with movement & ET suctioning. Dialysis run competed & Cielo said 3 Liters off. Sweta care performed.
--- NOTE | 2020-10-27 18:21 | NUR ---
Problems reprioritized. Patient report given, questions answered & plan of care reviewed with Rinku JEAN.
--- NOTE | 2020-10-27 18:35 | NUR ---
Patient in room ICU 2043. I have received report from Radha and César RNs and had the opportunity to ask questions and assume patient care.
[2020-10-28] VITALS (18 sets, daily range): BP systolic 102–140; BP diastolic 58–78
[2020-10-28] MEDS: normal saline 1000ml 1,000 ML IV SCH ×2 (00:10→20:05)
[2020-10-28] MEDS: hydrocortisone sod succ/PF 100mg/2ml inj. IV SCH ×4 (01:38→20:03)
[2020-10-28] MEDS: lactulose 20gm/30ml cup CORPAK SCH ×4 (01:38→20:04)
[2020-10-28] MEDS: metoclopramide 5 mg/ml inj IV SCH ×4 (01:39→20:03)
[2020-10-28] MEDS: midazolam 100mg in NS 100ml 100 ML IV SCH (01:46)
[2020-10-28] MEDS: FENTANYL-0.9 % NACL/PF 100 ML IV SCH ×3 (01:46→20:40)
[2020-10-28 02:15] LABS: BASOPHILS % (AUTO) 0.1 % (0-1); EOSINOPHILS % (AUTO) 0 % (0-6); HEMATOCRIT 36.6 % (42.0-52.0); HEMOGLOBIN 12.4 g/dl (14.0-17.9); LYMPHOCYTES # (AUTO) 0.1 X10'3 (1.1-4.8); LYMPHOCYTES % (AUTO) 1.3 % (21-51); MEAN CORPUSCULAR HEMOGLOBIN 29.6 PG (27.0-31.0); MEAN CORPUSCULAR HGB CONC 33.8 g/dL (33.0-36.5); MEAN CORPUSCULAR VOLUME 87.7 FL (78-98); MEAN PLATELET VOLUME 8.4 FL (7.4-10.4); MONOCYTES # (AUTO) 0.9 X10'3 (0-0.9); MONOCYTES % (AUTO) 8.1 % (2-12); NEUTROPHILS # (AUTO) 10.1 X10'3 (1.8-7.7); NEUTROPHILS % (AUTO) 90.5 % (42-75); PLATELET COUNT 85 X10'3 (140-440); RED BLOOD COUNT 4.18 X10'6 (4.70-6.10); WHITE BLOOD COUNT 11.1 X10'3 (4.5-11.0)
[2020-10-28 02:24] LABS: ALBUMIN 2.1 G/DL (3.4-5.0); ANION GAP 10 (8-16); BLOOD UREA NITROGEN 64 MG/DL (7-18); BUN/CREATININE RATIO 12.2 (5.4-32.0); CALCIUM 7.5 MG/DL (8.5-10.1); CHLORIDE 103 MMOL/L (99-107); CREATININE 5.23 MG/DL (0.60-1.10); GLUCOSE 114 MG/DL (70-104); PHOSPHORUS 5.5 MG/DL (2.3-4.5); POTASSIUM 4.6 MMOL/L (3.5-5.1); SODIUM 137 MMOL/L (135-145); TOTAL CARBON DIOXIDE 24.5 MMOL/L (24-32); VANCOMYCIN,RANDOM 18.4 UG/ML; eGFR 11 ML/MIN
[2020-10-28] MEDS: ipratropium/albuterol 3ml nebule NEB SCH ×6 (02:53→23:08)
[2020-10-28] MEDS: VANCOMYCIN LEVEL IV SCH (03:00)
[2020-10-28 03:05] LABS: ABG BASE EXCESS -0.3 mmol/L (-2.0-2.0); ABG HCO3 23.8 mmol/L (22.0-26.0); ABG PCO2 (T) 36.4 mmHg (35.0-48.0); ABG PO2 (T) 70.1 mmHg (75.0-100.0); FCOHb 0.4 % (0.0-3.9); FMetHb 0.5 % (0.0-1.5); FO2Hb 94.1 % (94-97); PATIENT TEMPERATURE 36.5; PEEP 8 cm H2O; RESPIRATORY RATE 18 b/min; TIDAL VOLUME 500 mL; TOTAL HEMOGLOBIN 13.2 G/dl (14.0-18.0)
[2020-10-28] MEDS: dexmedetomidin/NS 400mcg/100ml 100 ML IV SCH ×4 (05:26→22:59)
--- NOTE | 2020-10-28 06:15 | NUR ---
Patient in room ICU 2043. I have received report from Rinku JEAN and had the opportunity to ask questions and assume patient care. Godfrey JEAN preceptor.
--- NOTE | 2020-10-28 06:27 | NUR ---
Problems reprioritized. Patient report given, questions answered & plan of care reviewed with Raisa JEAN.
[2020-10-28] MEDS: K and/or MAG REPLACEMENT MC SCH ×2 (08:00→20:00)
[2020-10-28] MEDS: diltiazem 30mg tablet PO SCH ×3 (08:00→20:04)
[2020-10-28] MEDS: pantoprazole 40 MG vial IV SCH (08:08)
[2020-10-28] MEDS: losartan 25mg tablet CORPAK SCH (08:09)
[2020-10-28] MEDS: docusate sodium 100mg/10ml UD cup CORPAK SCH ×2 (08:09→20:03)
--- NOTE | 2020-10-28 09:06 | NUR ---
Dr Trinh here. Fent/Versed off for sedation vacation. Peep down to 5 also. Called May RT to le her know.
--- NOTE | 2020-10-28 12:27 | NUR ---
F/u 10/28: Pt TF advanced to 40ml/hr today up from 20ml yesterday following first BM 10/26 w/ GRV's maintaining ~250-275ml. EN to increase to 50ml/hr today and then to increase to goal as tolerated per parking regulation enforcement officer at rounds. Pt rectal bag now in place though no documented output since 10/26 continues to receive multiple bowel care agents. Pt off CVVH now on HD; EN recs below adjusted given pt needs. Will continue to monitor for TF tolerance and adjustment needs as medically indicated. Rec: 1. Since pt off CVVH now on HD; Continuous TF using Vital High Protein at 95ml/hr goal. To provide 2280ml volume, 1915ml free water, 2280kcals, and 200g protein. 2. Additional water flush per MD in view of HD 3. PALB q /; daily wts 4. routine bowel care 5. Monitor for TF tolerance and adjustment needs as medically indicated Addendum: 10/28/20 at [address] Amended: Links added.
[2020-10-28] MEDS: methylnaltrexone br 12mg/0.6ml inj***SubQ only SQ SCH (12:54)
[2020-10-28] MEDS: DOBUTamine-DoBUTrex 500mg/D5W 250 ML IV SCH (14:31)
--- NOTE | 2020-10-28 18:14 | NUR ---
Problems reprioritized. Patient report given, questions answered & plan of care reviewed with Luna JEAN.
--- NOTE | 2020-10-28 18:30 | NUR ---
Patient in room ICU 2043. I have received report from César JEAN and had the opportunity to ask questions and assume patient care.
[2020-10-29] VITALS (24 sets, daily range): BP systolic 90–135; BP diastolic 59–89
[2020-10-29] MEDS: FENTANYL-0.9 % NACL/PF 100 ML IV SCH ×4 (00:28→17:35)
[2020-10-29] MEDS: metoclopramide 5 mg/ml inj IV SCH ×4 (01:57→19:59)
[2020-10-29] MEDS: hydrocortisone sod succ/PF 100mg/2ml inj. IV SCH ×2 (01:57→20:00)
[2020-10-29] MEDS: lactulose 20gm/30ml cup CORPAK SCH ×4 (01:57→19:56)
[2020-10-29] MEDS: dexmedetomidin/NS 400mcg/100ml 100 ML IV SCH ×6 (01:58→19:58)
[2020-10-29 02:20] LABS: BASOPHILS % (AUTO) 0.3 % (0-1); EOSINOPHILS % (AUTO) 0 % (0-6); HEMATOCRIT 39.3 % (42.0-52.0); HEMOGLOBIN 13.1 g/dl (14.0-17.9); LYMPHOCYTES # (AUTO) 0.1 X10'3 (1.1-4.8); MEAN CORPUSCULAR HEMOGLOBIN 29.2 PG (27.0-31.0); MEAN CORPUSCULAR HGB CONC 33.2 g/dL (33.0-36.5); MEAN CORPUSCULAR VOLUME 87.8 FL (78-98); MEAN PLATELET VOLUME 8.2 FL (7.4-10.4); MONOCYTES # (AUTO) 0.9 X10'3 (0-0.9); MONOCYTES % (AUTO) 6.3 % (2-12); NEUTROPHILS # (AUTO) 13.1 X10'3 (1.8-7.7); NEUTROPHILS % (AUTO) 92.4 % (42-75); PLATELET COUNT 99 X10'3 (140-440); RED BLOOD COUNT 4.47 X10'6 (4.70-6.10); RED CELL DISTRIBUTION WIDTH 14.9 % (11.5-14.5); WHITE BLOOD COUNT 14.2 X10'3 (4.5-11.0)
[2020-10-29 02:34] LABS: ALBUMIN 2.2 G/DL (3.4-5.0); ANION GAP 14 (8-16); BLOOD UREA NITROGEN 99 MG/DL (7-18); BUN/CREATININE RATIO 14.5 (5.4-32.0); CALCIUM 7.4 MG/DL (8.5-10.1); CHLORIDE 100 MMOL/L (99-107); CREATININE 6.85 MG/DL (0.60-1.10); GLUCOSE 115 MG/DL (70-104); PHOSPHORUS 6.5 MG/DL (2.3-4.5); POTASSIUM 5.1 MMOL/L (3.5-5.1); PREALBUMIN 24.7 MG/DL (19-36); SODIUM 135 MMOL/L (135-145); TOTAL CARBON DIOXIDE 20.9 MMOL/L (24-32); VANCOMYCIN,RANDOM 17.8 UG/ML; eGFR 8 ML/MIN
[2020-10-29] MEDS: VANCOMYCIN LEVEL IV SCH (03:00)
[2020-10-29] MEDS: ipratropium/albuterol 3ml nebule NEB SCH ×6 (03:47→23:00)
[2020-10-29 04:22] LABS: ABG BASE EXCESS -2.4 mmol/L (-2.0-2.0); ABG HCO3 21.5 mmol/L (22.0-26.0); ABG PO2 (T) 64.8 mmHg (75.0-100.0); FCOHb 0.6 % (0.0-3.9); FMetHb 0.4 % (0.0-1.5); FO2Hb 92.1 % (94-97); PATIENT TEMPERATURE 36.6; PEEP 5 cm H2O; RESPIRATORY RATE 18 b/min; TIDAL VOLUME 500 mL; TOTAL HEMOGLOBIN 14.2 G/dl (14.0-18.0)
[2020-10-29] MEDS: DOBUTamine-DoBUTrex 500mg/D5W 250 ML IV SCH ×2 (04:30→12:41)
--- NOTE | 2020-10-29 06:23 | NUR ---
Problems reprioritized. Patient report given, questions answered & plan of care reviewed with Donya JEAN.
[2020-10-29] MEDS ORDERED: EPOETIN ALFA-EPBX 20,000 UNIT/ML 1 ML MDV IV ONE (07:50)
[2020-10-29] MEDS ORDERED: heparin 1,000unit/ml 10ml vial 10 ML IV ONE (07:50)
[2020-10-29] MEDS ORDERED: heparin 1,000 units/ml 10ml inj IV ONE (07:50)
[2020-10-29] MEDS ORDERED: albumin (human) 25% 100ml IV 100 ML IV PRN (07:50)
[2020-10-29] MEDS ORDERED: heparin 1,000 units/ml 10ml inj HE ONE ×2 (07:50)
[2020-10-29] MEDS ORDERED: hydrocortisone sod succ/PF 100mg/2ml inj. IV SCH (08:00)
[2020-10-29] MEDS: docusate sodium 100mg/10ml UD cup CORPAK SCH ×2 (08:00→19:56)
[2020-10-29] MEDS: K and/or MAG REPLACEMENT MC SCH ×2 (08:00→20:00)
[2020-10-29 08:50] LABS: ALANINE AMINOTRANSFERASE 839 U/L (12-78); ALBUMIN/GLOBULIN RATIO 0.8 (1.1-1.5); ALKALINE PHOSPHATASE 145 IU/L (46-116); ASPARTATE AMINO TRANSFERASE 38 U/L (10-37); BILIRUBIN,TOTAL 1.9 MG/DL (0.1-1.0); MAGNESIUM 2.8 MG/DL (1.5-2.4)
[2020-10-29] MEDS: pantoprazole 40 MG vial IV SCH (09:10)
[2020-10-29] MEDS: heparin, porcine 5000 units/ml vial SQ SCH ×2 (09:11→19:59)
[2020-10-29] MEDS ORDERED: diltiazem 5mg/ml 5ml inj. IV ONE (10:40)
[2020-10-29] MEDS ORDERED: CISatracurium **Bolus** 2 mg/ml inj IV PRN ×2 (11:00→11:10)
--- NOTE | 2020-10-29 11:27 | NUR ---
TPN Consult: Pt TF up to 50ml/hr yesterday though subsequent GRV 400-500's w/ EN now held. Custom TPN to start today since pt on HD and pending CT abdomen per agricultural science professor at rounds. RD collaborated w/ clinical pharmacist for custom PN recs below. Will monitor for PN tolerance and adjustment needs as medically indicated. Rec: 1. Custom TPN per MD using 1600ml 10% AA, 500ml D70, and 100ml 20% intralipids to run at 91.67ml/hr goal. To provide 2200ml volume, 160g AA, 350g DEX (2.34mg/kg/min), 20g lipids, and 2030 total kcals. Initiate at 30ml/hr and advance to goal Q12H as tolerated. Goal rate to be adjusted by clinical pharmacist based on micronutrient additions. 2. IF TF to resume; Continuous TF using Vital High Protein at 95ml/hr goal. To provide 2280ml volume, 1915ml free water, 2280kcals, and 200g protein. 3. IF EN; Additional water flush per MD in view of HD 4. PALB/TG q /; daily wts 5. routine bowel care 6. Monitor for PN tolerance and adjustment needs as medically indicated Addendum: 10/29/20 at [address] Amended: Links added.
[2020-10-29] MEDS: diltiazem-NS 100mg/100ml 100 ML IV SCH ×2 (11:29→21:10)
[2020-10-29] MEDS: diatr meglu/diatrizoate 30ml oral sol.-(3 dose) bottle PO SCH ×3 (11:32→17:42)
[2020-10-29] MEDS: propofol 1000mg/100ml bottle 100 ML IV SCH ×2 (12:12→20:02)
[2020-10-29] MEDS ORDERED: magnesium 4gm in 100ml NS 100 ML IV PRN (13:45)
[2020-10-29] MEDS ORDERED: magnesium 2GM in 50ml NS 50 ML IV PRN (13:45)
[2020-10-29] MEDS ORDERED: magnesium Cl slow-release 64mg tablet PO PRN (13:45)
[2020-10-29] MEDS ORDERED: Dextrose 10%-water IV solution 1,000 ML IV PRN (13:45)
--- NOTE | 2020-10-29 14:38 | NUR ---
F/u 10/29: Lipids and MVI to be run separately w/ MVI to run bi-weekly; updated custom PN goal rate at 89ml/hr per clinical pharmacist. Updated PN recs below. Rec: 1. Custom TPN per MD using 1600ml 10% AA, 500ml D70 to run at 89ml/hr goal. Separate 100ml 20% intralipids to run 12 hours daily at 8.33ml/hr. In total; to provide 2136ml volume, 160g AA, 350g DEX (2.34mg/kg/min), 20g lipids, and 2030 total kcals. Initiate at 30ml/hr and advance to goal Q12H as tolerated. 2. IF TF to resume; Continuous TF using Vital High Protein at 95ml/hr goal. To provide 2280ml volume, 1915ml free water, 2280kcals, and 200g protein. 3. IF EN; Additional water flush per MD in view of HD 4. PALB/TG q /; daily wts 5. routine bowel care 6. Monitor for PN tolerance and adjustment needs as medically indicated Addendum: 10/29/20 at [address] Amended: Links added.
[2020-10-29 14:54] LABS: PREALBUMIN 25.8 MG/DL (19-36)
--- NOTE | 2020-10-29 18:30 | NUR ---
Patient in room ICU 2043. I have received report from Donya JEAN and had the opportunity to ask questions and assume patient care. Addendum: 10/29/20 at 1906 by Padmini Gilbert RN Amended: Links added.
[2020-10-29] MEDS ORDERED: MANGANESE IV SCH ×7 (20:00)
[2020-10-29] MEDS ORDERED: fat emulsion 20% inj. 100 ML IV SCH (20:00)
[2020-10-29] MEDS ORDERED: SODIUM CL IV SCH ×7 (20:00)
[2020-10-29] MEDS ORDERED: ZINC IV SCH ×7 (20:00)
[2020-10-29] MEDS ORDERED: COPPER IV SCH ×7 (20:00)
[2020-10-29] MEDS ORDERED: SELENIUM IV SCH ×7 (20:00)
[2020-10-29] MEDS ORDERED: [UNRECOGNIZED DRUG - OTHER] IV SCH ×7 (20:00)
[2020-10-29] MEDS ORDERED: CALCIUM GLUCONATE IV SCH ×7 (20:00)
[2020-10-30] VITALS (24 sets, daily range): BP systolic 93–117; BP diastolic 60–84
[2020-10-30] MEDS: dexmedetomidin/NS 400mcg/100ml 100 ML IV SCH ×9 (00:01→22:15)
[2020-10-30] MEDS: metoclopramide 5 mg/ml inj IV SCH ×2 (02:40→08:35)
[2020-10-30] MEDS: lactulose 20gm/30ml cup CORPAK SCH ×4 (02:40→21:07)
[2020-10-30] MEDS: VANCOMYCIN LEVEL IV SCH (03:00)
[2020-10-30] MEDS: ipratropium/albuterol 3ml nebule NEB SCH ×6 (03:12→23:00)
[2020-10-30 03:35] LABS: BASOPHILS % (AUTO) 0 % (0-1); EOSINOPHILS % (AUTO) 0 % (0-6); HEMATOCRIT 40.9 % (42.0-52.0); HEMOGLOBIN 13.5 g/dl (14.0-17.9); LYMPHOCYTES # (AUTO) 0.1 X10'3 (1.1-4.8); MEAN CORPUSCULAR HEMOGLOBIN 29.4 PG (27.0-31.0); MEAN CORPUSCULAR HGB CONC 33.1 g/dL (33.0-36.5); MEAN PLATELET VOLUME 8.7 FL (7.4-10.4); MONOCYTES # (AUTO) 0.8 X10'3 (0-0.9); MONOCYTES % (AUTO) 6.9 % (2-12); NEUTROPHILS # (AUTO) 10.7 X10'3 (1.8-7.7); NEUTROPHILS % (AUTO) 92.1 % (42-75); PLATELET COUNT 108 X10'3 (140-440); RED BLOOD COUNT 4.59 X10'6 (4.70-6.10); RED CELL DISTRIBUTION WIDTH 14.8 % (11.5-14.5); WHITE BLOOD COUNT 11.6 X10'3 (4.5-11.0)
[2020-10-30 03:42] LABS: ABG BASE EXCESS -3.6 mmol/L (-2.0-2.0); ABG HCO3 18.6 mmol/L (22.0-26.0); ABG OXYGEN SATURATION 93.6 % (94-97); ABG PCO2 (T) 26.1 mmHg (35.0-48.0); ABG PO2 (T) 65.3 mmHg (75.0-100.0); ALLEN'S TEST POSITIVE; FCOHb 0.4 % (0.0-3.9); FMetHb 0.3 % (0.0-1.5); FO2Hb 92.9 % (94-97); PATIENT TEMPERATURE 36.6; PEEP 5 cm H2O; RESPIRATORY RATE 18 b/min; TIDAL VOLUME 500 mL; TOTAL HEMOGLOBIN 14.3 G/dl (14.0-18.0)
[2020-10-30 03:57] LABS: ALANINE AMINOTRANSFERASE 570 U/L (12-78); ALBUMIN/GLOBULIN RATIO 0.7 (1.1-1.5); ALKALINE PHOSPHATASE 125 IU/L (46-116); ANION GAP 13 (8-16); ASPARTATE AMINO TRANSFERASE 28 U/L (10-37); BILIRUBIN,TOTAL 1.6 MG/DL (0.1-1.0); BLOOD UREA NITROGEN 91 MG/DL (7-18); CALCIUM 7.1 MG/DL (8.5-10.1); CHLORIDE 103 MMOL/L (99-107); CREATININE 6.51 MG/DL (0.60-1.10); GLUCOSE 124 MG/DL (70-104); MAGNESIUM 2.7 MG/DL (1.5-2.4); PHOSPHORUS 7.2 MG/DL (2.3-4.5); POTASSIUM 5.3 MMOL/L (3.5-5.1); SODIUM 139 MMOL/L (135-145); TOTAL CARBON DIOXIDE 22.8 MMOL/L (24-32); TOTAL PROTEIN 4.8 G/DL (6.4-8.2); TRIGLYCERIDES 140 MG/DL (20-135); VANCOMYCIN,RANDOM 14.6 UG/ML; eGFR 9 ML/MIN
[2020-10-30] MEDS: FENTANYL-0.9 % NACL/PF 100 ML IV SCH (05:07)
--- NOTE | 2020-10-30 05:12 | NUR ---
Dr. Reynolds updated on patient's condition. Orders received
--- NOTE | 2020-10-30 06:19 | NUR ---
Problems reprioritized. Patient report given, questions answered & plan of care reviewed with Donya JEAN.
[2020-10-30] MEDS: K and/or MAG REPLACEMENT MC SCH ×2 (08:00→20:00)
[2020-10-30] MEDS: docusate sodium 100mg/10ml UD cup CORPAK SCH ×3 (08:00→21:07)
[2020-10-30] MEDS: pantoprazole 40 MG vial IV SCH (08:34)
[2020-10-30] MEDS: heparin, porcine 5000 units/ml vial SQ SCH ×2 (08:35→21:07)
[2020-10-30] MEDS: hydrocortisone sod succ/PF 100mg/2ml inj. IV SCH ×2 (08:35→21:06)
[2020-10-30] MEDS: methylnaltrexone br 12mg/0.6ml inj***SubQ only SQ SCH (08:36)
[2020-10-30] MEDS ORDERED: OLANZapine **IM** 10 mg inj. IM ONE ×2 (09:55)
[2020-10-30] MEDS ORDERED: vancomycin inj 500 MG in normal saline 100ml IV soln 100 ML IV ONE (10:00)
[2020-10-30] MEDS: DOBUTamine-DoBUTrex 500mg/D5W 250 ML IV SCH (11:46)
[2020-10-30] MEDS: diltiazem-NS 100mg/100ml 100 ML IV SCH ×2 (11:47→22:14)
[2020-10-30] MEDS: propofol 1000mg/100ml bottle 100 ML IV SCH ×2 (15:22→23:19)
[2020-10-30] MEDS: CALCIUM GLUCONATE IV SCH ×7 (16:15)
[2020-10-30] MEDS: SODIUM CL IV SCH ×7 (16:15)
[2020-10-30] MEDS: ZINC IV SCH ×7 (16:15)
[2020-10-30] MEDS: [UNRECOGNIZED DRUG - OTHER] IV SCH ×7 (16:15)
[2020-10-30] MEDS: MANGANESE IV SCH ×7 (16:15)
[2020-10-30] MEDS: COPPER IV SCH ×7 (16:15)
[2020-10-30] MEDS: SELENIUM IV SCH ×7 (16:15)
[2020-10-30] MEDS ORDERED: heparin 1,000unit/ml 10ml vial 10 ML ONE (17:53)
[2020-10-30] MEDS ORDERED: LIDOcaine 1%/PF 5ML 10 MG/ML VIAL ONE (17:53)
--- NOTE | 2020-10-30 18:31 | NUR ---
1805: Patient to IR for TDC placement accompanied by IR crew and RT. I have received report from [facility] RNs and had the opportunity to ask questions and assume patient care. Addendum: 10/30/20 at 1832 by Padmini Gilbert RN Amended: Links added.
[2020-10-30] MEDS: fat emulsion 20% inj. 100 ML IV SCH (21:08)
[2020-10-30] MEDS: HYDROmorphone/PF 0.2 MG/ML SYRINGE IV PRN (22:13)
[2020-10-31] VITALS (22 sets, daily range): BP systolic 82–128; BP diastolic 55–98
[2020-10-31] MEDS: VANCOMYCIN LEVEL IV SCH (02:47)
[2020-10-31] MEDS: lactulose 20gm/30ml cup CORPAK SCH ×4 (02:55→20:00)
[2020-10-31] MEDS: ipratropium/albuterol 3ml nebule NEB SCH ×7 (03:05→23:21)
[2020-10-31 03:16] LABS: ALANINE AMINOTRANSFERASE 424 U/L (12-78); ALBUMIN 1.9 G/DL (3.4-5.0); ALBUMIN/GLOBULIN RATIO 0.7 (1.1-1.5); ALKALINE PHOSPHATASE 106 IU/L (46-116); ANION GAP 16 (8-16); ASPARTATE AMINO TRANSFERASE 28 U/L (10-37); BILIRUBIN,TOTAL 1.3 MG/DL (0.1-1.0); BLOOD UREA NITROGEN 119 MG/DL (7-18); BUN/CREATININE RATIO 15.1 (5.4-32.0); CALCIUM 7.2 MG/DL (8.5-10.1); CHLORIDE 101 MMOL/L (99-107); GLUCOSE 143 MG/DL (70-104); MAGNESIUM 2.6 MG/DL (1.5-2.4); PHOSPHORUS 7.8 MG/DL (2.3-4.5); POTASSIUM 5.3 MMOL/L (3.5-5.1); SODIUM 136 MMOL/L (135-145); TOTAL CARBON DIOXIDE 19.5 MMOL/L (24-32); TOTAL PROTEIN 4.7 G/DL (6.4-8.2); VANCOMYCIN,RANDOM 18.8 UG/ML; eGFR 7 ML/MIN
[2020-10-31 03:54] LABS: ABG BASE EXCESS -6.3 mmol/L (-2.0-2.0); ABG HCO3 16.9 mmol/L (22.0-26.0); ABG OXYGEN SATURATION 96.9 % (94-97); ABG PCO2 (T) 27.6 mmHg (35.0-48.0); ABG PO2 (T) 90.9 mmHg (75.0-100.0); ALLEN'S TEST POSITIVE; FCOHb 0.5 % (0.0-3.9); FMetHb 0.3 % (0.0-1.5); FO2Hb 96.1 % (94-97); PATIENT TEMPERATURE 37.2; PEEP 5 cm H2O; TOTAL HEMOGLOBIN 13.8 G/dl (14.0-18.0)
[2020-10-31] MEDS: HYDROmorphone/PF 0.2 MG/ML SYRINGE IV PRN (05:30)
[2020-10-31] MEDS: dexmedetomidin/NS 400mcg/100ml 100 ML IV SCH ×6 (05:30→23:19)
[2020-10-31 06:09] LABS: BASOPHILS % (AUTO) 0.1 % (0-1); EOSINOPHILS % (AUTO) 0 % (0-6); HEMATOCRIT 38.9 % (42.0-52.0); HEMOGLOBIN 13.1 g/dl (14.0-17.9); LYMPHOCYTES # (AUTO) 0.1 X10'3 (1.1-4.8); LYMPHOCYTES % (AUTO) 0.8 % (21-51); MEAN CORPUSCULAR HEMOGLOBIN 29.9 PG (27.0-31.0); MEAN CORPUSCULAR HGB CONC 33.8 g/dL (33.0-36.5); MEAN CORPUSCULAR VOLUME 88.5 FL (78-98); MEAN PLATELET VOLUME 8.9 FL (7.4-10.4); MONOCYTES # (AUTO) 0.7 X10'3 (0-0.9); MONOCYTES % (AUTO) 6.6 % (2-12); NEUTROPHILS # (AUTO) 10.1 X10'3 (1.8-7.7); NEUTROPHILS % (AUTO) 92.5 % (42-75); PLATELET COUNT 124 X10'3 (140-440); RED CELL DISTRIBUTION WIDTH 15.4 % (11.5-14.5); WHITE BLOOD COUNT 10.9 X10'3 (4.5-11.0)
--- NOTE | 2020-10-31 06:30 | NUR ---
Problems reprioritized. Patient report given, questions answered & plan of care reviewed with Godfrey JEAN.
[2020-10-31] MEDS: docusate sodium 100mg/10ml UD cup CORPAK SCH ×2 (07:35→20:00)
[2020-10-31] MEDS: pantoprazole 40 MG vial IV SCH (07:35)
[2020-10-31] MEDS: OLANZapine 2.5MG tablet PO SCH (07:39)
[2020-10-31] MEDS: heparin, porcine 5000 units/ml vial SQ SCH ×2 (07:40→22:00)
[2020-10-31] MEDS: hydrocortisone sod succ/PF 100mg/2ml inj. IV SCH ×2 (07:41→22:19)
[2020-10-31] MEDS ORDERED: olanzapine 10mg tablet PO SCH (08:00)
[2020-10-31] MEDS ORDERED: heparin 1,000unit/ml 10ml vial 10 ML IV ONE (09:45)
[2020-10-31] MEDS ORDERED: albumin (human) 25% 100ml IV 100 ML IV PRN (09:45)
[2020-10-31] MEDS ORDERED: heparin 1,000 units/ml 10ml inj HE ONE ×2 (09:50)
[2020-10-31] MEDS: diltiazem-NS 100mg/100ml 100 ML IV SCH ×2 (12:05→20:18)
[2020-10-31] MEDS ORDERED: ziprasidone IM 20mg inj **IM only IM ONE (17:00)
[2020-10-31] MEDS: MANGANESE IV SCH ×7 (17:31)
[2020-10-31] MEDS: SODIUM CL IV SCH ×7 (17:31)
[2020-10-31] MEDS: ZINC IV SCH ×7 (17:31)
[2020-10-31] MEDS: COPPER IV SCH ×7 (17:31)
[2020-10-31] MEDS: CALCIUM GLUCONATE IV SCH ×7 (17:31)
[2020-10-31] MEDS: [UNRECOGNIZED DRUG - OTHER] IV SCH ×7 (17:31)
[2020-10-31] MEDS: SELENIUM IV SCH ×7 (17:31)
--- NOTE | 2020-10-31 19:01 | NUR ---
Patient in room ICU 2043. I have received report from rosa and had the opportunity to ask questions and assume patient care.
--- NOTE | 2020-10-31 19:45 | NUR ---
Corpak placed, XRAY taken and has good placement, waiting for confirmation to use.
[2020-10-31] MEDS: K and/or MAG REPLACEMENT MC SCH (20:00)
[2020-10-31] MEDS: fat emulsion 20% inj. 100 ML IV SCH (20:19)
[2020-11-01] VITALS (24 sets, daily range): BP systolic 97–132; BP diastolic 56–90
--- NOTE | 2020-11-01 | NUR ---
pt pulled out newly placed corpak, unable to give colace and lactulose until new corpak placed
[2020-11-01] MEDS ORDERED: ziprasidone IM 20mg inj **IM only IM PRN (02:00)
[2020-11-01] MEDS: lactulose 20gm/30ml cup CORPAK SCH ×4 (02:00→21:15)
[2020-11-01 02:39] LABS: BASOPHILS % (AUTO) 0.3 % (0-1); EOSINOPHILS % (AUTO) 0.1 % (0-6); HEMATOCRIT 40.6 % (42.0-52.0); HEMOGLOBIN 13.6 g/dl (14.0-17.9); LYMPHOCYTES # (AUTO) 0.1 X10'3 (1.1-4.8); LYMPHOCYTES % (AUTO) 1.1 % (21-51); MEAN CORPUSCULAR HEMOGLOBIN 29.4 PG (27.0-31.0); MEAN CORPUSCULAR HGB CONC 33.4 g/dL (33.0-36.5); MEAN CORPUSCULAR VOLUME 88.2 FL (78-98); MEAN PLATELET VOLUME 8.7 FL (7.4-10.4); MONOCYTES # (AUTO) 1.1 X10'3 (0-0.9); MONOCYTES % (AUTO) 8.3 % (2-12); NEUTROPHILS # (AUTO) 11.6 X10'3 (1.8-7.7); NEUTROPHILS % (AUTO) 90.2 % (42-75); PLATELET COUNT 138 X10'3 (140-440); RED CELL DISTRIBUTION WIDTH 15.4 % (11.5-14.5); WHITE BLOOD COUNT 12.9 X10'3 (4.5-11.0)
[2020-11-01 02:49] LABS: ALANINE AMINOTRANSFERASE 341 U/L (12-78); ALBUMIN 1.9 G/DL (3.4-5.0); ALBUMIN/GLOBULIN RATIO 0.6 (1.1-1.5); ALKALINE PHOSPHATASE 103 IU/L (46-116); ANION GAP 15 (8-16); ASPARTATE AMINO TRANSFERASE 37 U/L (10-37); BILIRUBIN,TOTAL 1.2 MG/DL (0.1-1.0); BLOOD UREA NITROGEN 96 MG/DL (7-18); BUN/CREATININE RATIO 14.5 (5.4-32.0); CALCIUM 7.4 MG/DL (8.5-10.1); CHLORIDE 100 MMOL/L (99-107); CREATININE 6.61 MG/DL (0.60-1.10); GLUCOSE 151 MG/DL (70-104); MAGNESIUM 2.3 MG/DL (1.5-2.4); PHOSPHORUS 5.2 MG/DL (2.3-4.5); POTASSIUM 4.5 MMOL/L (3.5-5.1); SODIUM 136 MMOL/L (135-145); TOTAL CARBON DIOXIDE 21.5 MMOL/L (24-32); VANCOMYCIN,RANDOM 14.8 UG/ML; eGFR 9 ML/MIN
[2020-11-01] MEDS: VANCOMYCIN LEVEL IV SCH (03:00)
[2020-11-01] MEDS: ipratropium/albuterol 3ml nebule NEB SCH ×6 (03:42→23:36)
[2020-11-01] MEDS: propofol 1000mg/100ml bottle 100 ML IV SCH (04:03)
[2020-11-01] MEDS: dexmedetomidin/NS 400mcg/100ml 100 ML IV SCH ×3 (05:44→18:44)
--- NOTE | 2020-11-01 06:15 | NUR ---
Problems reprioritized. Patient report given, questions answered & plan of care reviewed with Phil.
[2020-11-01] MEDS: K and/or MAG REPLACEMENT MC SCH ×2 (08:00→20:00)
[2020-11-01] MEDS: methylnaltrexone br 12mg/0.6ml inj***SubQ only SQ SCH (09:02)
[2020-11-01] MEDS: heparin, porcine 5000 units/ml vial SQ SCH ×2 (09:03→21:16)
[2020-11-01] MEDS: hydrocortisone sod succ/PF 100mg/2ml inj. IV SCH ×2 (09:04→21:32)
[2020-11-01] MEDS: docusate sodium 100mg/10ml UD cup CORPAK SCH ×2 (09:07→20:00)
[2020-11-01] MEDS: OLANZapine 2.5MG tablet PO SCH (09:07)
[2020-11-01] MEDS: pantoprazole 40 MG vial IV SCH (09:07)
[2020-11-01] MEDS ORDERED: vancomycin/NS 1 GM ADD-VANTAGE 250 ML X 1 DOSE IV ONE (10:00)
--- NOTE | 2020-11-01 12:16 | NUR ---
F/u 711: Pt extubated 10/31 PM w/ corpak placed though pt pulled out corpak currently custom PN only source of nutrition. Pt TF had been restarted 10/[address] abdomen 10/29 and up to 20ml/hr until pt pulled corpak. Per RN today; pt passed RN BSS and PO diet to possible start in near future. RD recommends MARKET ANALYSIS DIRECTOR BSS given recent extubation w/ ALOC; MD notified. Updated custom PN recs below given pt extubation needs on HD. RD collaborated w/ clinical pharmacist for updated PN recs pending physician approval w/ updated recs in pt chart. Will provide updated recs below. LBM 10/29 -100ml rectal bag continues to receive multiple bowel care agents w/ no significant BM event this admit. Will monitor for PN tolerance and PO diet advancement/tolerance as medically indicated. IF pt fails MARKET ANALYSIS DIRECTOR BSS consider corpak for post-pyloric feeding to meet nutrition needs on HD. Rec: 1. Custom TPN per MD using 1600ml 10% AA, 500ml D70 to run at 89ml/hr goal. Separate 100ml 20% intralipids to run 12 hours daily at 8.33ml/hr. In total; to provide 2136ml volume, 160g AA, 350g DEX (2.34mg/kg/min), 20g lipids, and 2030 total kcals. Initiate at 30ml/hr and advance to goal Q12H as tolerated. 2. Change Custom PN if MD agreeable; Custom TPN using 1530ml 10% AA, 570ml D70 to run at 87.5ml/hr goal. Separate 100ml 20% intralipids to run 12 hours daily at 8.33ml/hr. In total; to provide 2100ml volume, 153g AA, 399g DEX (2.58mg/kg/min), 20g lipids, and 2169 total kcals. IF MD agreeable consider initiating at goal rate since no significant change in dex loading from prior PN. 3. IF TF to resume; recommend corpak for post-pyloric feeds w/ continuous TF using Vital AF at 80ml/hr goal. To provide 1920ml volume, 1555ml free water, 2304 kcals, and 144g protein. 4. IF EN; Additional water flush per MD in view of HD 5. PALB/TG q /Th; daily wts 6. routine bowel care 7. advance diet as medically indicated to renal per MARKET ANALYSIS DIRECTOR BSS recs Addendum: 11/01/20 at [address] Amended: Links added.
[2020-11-01] MEDS: [UNRECOGNIZED DRUG - OTHER] IV SCH ×7 (16:02)
[2020-11-01] MEDS: SODIUM CL IV SCH ×7 (16:02)
[2020-11-01] MEDS: CALCIUM GLUCONATE IV SCH ×7 (16:02)
[2020-11-01] MEDS: MANGANESE IV SCH ×7 (16:02)
[2020-11-01] MEDS: ZINC IV SCH ×7 (16:02)
[2020-11-01] MEDS: SELENIUM IV SCH ×7 (16:02)
[2020-11-01] MEDS: COPPER IV SCH ×7 (16:02)
[2020-11-01] MEDS ORDERED: heparin 1,000unit/ml 10ml vial 10 ML IV ONE (16:30)
[2020-11-01] MEDS ORDERED: heparin 1,000 units/ml 10ml inj IV ONE (16:30)
[2020-11-01] MEDS ORDERED: heparin 1,000 units/ml 10ml inj HE ONE (16:35)
--- NOTE | 2020-11-01 18:15 | NUR ---
Patient in room ICU 2043. I have received report from TED Donahue and had the opportunity to ask questions and assume patient care.
[2020-11-01] MEDS: diltiazem-NS 100mg/100ml 100 ML IV SCH (19:18)
[2020-11-01] MEDS: mineral oil/petrolatum ophthal oint EACHEYE PRN (21:15)
[2020-11-01] MEDS: fat emulsion 20% inj. 100 ML IV SCH (21:15)
[2020-11-01] MEDS: LORazepam 2 mg/ml vial IV PRN (21:20)
[2020-11-02] VITALS (23 sets, daily range): BP systolic 98–139; BP diastolic 63–91
[2020-11-02] MEDS: lactulose 20gm/30ml cup CORPAK SCH ×4 (02:09→20:37)
[2020-11-02] MEDS: dexmedetomidin/NS 400mcg/100ml 100 ML IV SCH ×4 (02:09→22:34)
[2020-11-02] MEDS: LORazepam 2 mg/ml vial IV PRN ×2 (02:55→22:08)
[2020-11-02] MEDS: diltiazem-NS 100mg/100ml 100 ML IV SCH (02:55)
[2020-11-02] MEDS: VANCOMYCIN LEVEL IV SCH (03:00)
[2020-11-02 03:16] LABS: BASOPHILS % (AUTO) 0.1 % (0-1); EOSINOPHILS % (AUTO) 0.1 % (0-6); HEMATOCRIT 39.3 % (42.0-52.0); HEMOGLOBIN 13.1 g/dl (14.0-17.9); LYMPHOCYTES # (AUTO) 0.1 X10'3 (1.1-4.8); LYMPHOCYTES % (AUTO) 1.1 % (21-51); MEAN CORPUSCULAR HEMOGLOBIN 29.3 PG (27.0-31.0); MEAN CORPUSCULAR HGB CONC 33.3 g/dL (33.0-36.5); MEAN CORPUSCULAR VOLUME 87.9 FL (78-98); MEAN PLATELET VOLUME 8.9 FL (7.4-10.4); MONOCYTES # (AUTO) 0.9 X10'3 (0-0.9); MONOCYTES % (AUTO) 6.7 % (2-12); NEUTROPHILS # (AUTO) 12.3 X10'3 (1.8-7.7); PLATELET COUNT 161 X10'3 (140-440); RED BLOOD COUNT 4.47 X10'6 (4.70-6.10); RED CELL DISTRIBUTION WIDTH 15.4 % (11.5-14.5); WHITE BLOOD COUNT 13.3 X10'3 (4.5-11.0)
[2020-11-02 03:27] LABS: ALANINE AMINOTRANSFERASE 267 U/L (12-78); ALBUMIN 1.9 G/DL (3.4-5.0); ALBUMIN/GLOBULIN RATIO 0.6 (1.1-1.5); ALKALINE PHOSPHATASE 100 IU/L (46-116); ANION GAP 17 (8-16); ASPARTATE AMINO TRANSFERASE 23 U/L (10-37); BLOOD UREA NITROGEN 131 MG/DL (7-18); BUN/CREATININE RATIO 16.9 (5.4-32.0); CALCIUM 7.5 MG/DL (8.5-10.1); CHLORIDE 96 MMOL/L (99-107); CREATININE 7.77 MG/DL (0.60-1.10); GLUCOSE 125 MG/DL (70-104); MAGNESIUM 2.2 MG/DL (1.5-2.4); POTASSIUM 4.6 MMOL/L (3.5-5.1); PREALBUMIN 30.2 MG/DL (19-36); SODIUM 133 MMOL/L (135-145); TOTAL CARBON DIOXIDE 19.7 MMOL/L (24-32); TRIGLYCERIDES 81 MG/DL (20-135); VANCOMYCIN,RANDOM 24.3 UG/ML; eGFR 7 ML/MIN
[2020-11-02] MEDS: ipratropium/albuterol 3ml nebule NEB SCH ×7 (04:08→22:57)
[2020-11-02] MEDS: DOBUTamine-DoBUTrex 500mg/D5W 250 ML IV SCH ×2 (05:14→14:44)
--- NOTE | 2020-11-02 06:40 | NUR ---
Problems reprioritized. Patient report given, questions answered & plan of care reviewed with TED Jasso.
[2020-11-02] MEDS: pantoprazole 40 MG vial IV SCH (07:46)
[2020-11-02] MEDS: hydrocortisone sod succ/PF 100mg/2ml inj. IV SCH ×2 (07:46→20:37)
[2020-11-02] MEDS ORDERED: MVI, adult No.4 with vit. K 10 ML in dextrose 5% water 500ml 500 ML IV SCH ×2 (08:00)
[2020-11-02] MEDS: K and/or MAG REPLACEMENT MC SCH ×2 (08:00→20:00)
[2020-11-02] MEDS: docusate sodium 100mg/10ml UD cup CORPAK SCH ×2 (08:09→20:37)
[2020-11-02] MEDS: OLANZapine 2.5MG tablet PO SCH (08:50)
[2020-11-02] MEDS: heparin, porcine 5000 units/ml vial SQ SCH ×2 (08:51→20:37)
[2020-11-02] MEDS: ondansetron/PF 4mg/2ml inj IV PRN ×2 (08:59→20:37)
--- NOTE | 2020-11-02 10:00 | NUR ---
vomited after giving him his meds, Zofran was given, no further vomiting noted
--- NOTE | 2020-11-02 13:17 | NUR ---
F/u 11/02: Pt advanced to SB6/regular diet per FLAT BREAKDOWN PROCESSOR recs this AM however vomiting on attempt to take PO meds per RN. TF stopped and pt remains on custom PN for main nutrition intake at this time. RD reviewed post-extubation PN changes w/ aircraft electrical systems specialist who is agreeable. RD collaborated w/ clinical pharmacist for updated PN recs which are placed in pt chart. Updated custom PN can start at goal rate since only slight changes to AA and DEX concentrations w/ goal rate remaining the same. Will monitor for PN tolerance. Rec: 1. Continue SB6/regular diet per FLAT BREAKDOWN PROCESSOR recs; monitor for PO tolerance w/ vomiting episode during pills this AM 2. Custom TPN per MD using 1530ml 10% AA, 570ml D70 to run at 89ml/hr goal. Separate 100ml 20% intralipids to run 12 hours daily at 8.33ml/hr. In total; to provide 2100ml volume, 153g AA, 399g DEX (2.58mg/kg/min), 20g lipids, and 2169 total kcals. Consider initiating at goal rate since no significant change in dex loading from prior PN. 3. IF TF to resume; recommend corpak for post-pyloric feeds w/ continuous TF using Vital AF at 80ml/hr goal. To provide 1920ml volume, 1555ml free water, 2304 kcals, and 144g protein. 4. IF EN; Additional water flush per MD in view of HD 5. PALB/TG q /; daily wts 6. routine bowel care; no BM 4 days vomiting w/ PO meds this AM 7. IF PO consistently at least 65% avg meals; consider renal diet restriction on HD Addendum: 11/02/20 at [address] Amended: Links added.
[2020-11-02] MEDS: amiodarone 200mg tablet PO SCH ×2 (13:21→20:37)
[2020-11-02] MEDS ORDERED: ZINC IV SCH ×7 (16:00)
[2020-11-02] MEDS ORDERED: SODIUM CL IV SCH ×7 (16:00)
[2020-11-02] MEDS ORDERED: MANGANESE IV SCH ×7 (16:00)
[2020-11-02] MEDS ORDERED: CALCIUM GLUCONATE IV SCH ×7 (16:00)
[2020-11-02] MEDS ORDERED: [UNRECOGNIZED DRUG - OTHER] IV SCH ×7 (16:00)
[2020-11-02] MEDS ORDERED: COPPER IV SCH ×7 (16:00)
[2020-11-02] MEDS ORDERED: SELENIUM IV SCH ×7 (16:00)
[2020-11-02] MEDS ORDERED: heparin 1,000 units/ml 10ml inj HE ONE (20:30)
[2020-11-02] MEDS: fat emulsion 20% inj. 100 ML IV SCH (20:36)
[2020-11-03] VITALS (18 sets, daily range): BP systolic 96–136; BP diastolic 52–89
[2020-11-03] MEDS: lactulose 20gm/30ml cup CORPAK SCH ×4 (02:00→19:33)
[2020-11-03] MEDS: VANCOMYCIN LEVEL IV SCH (03:00)
[2020-11-03] MEDS: ipratropium/albuterol 3ml nebule NEB SCH ×2 (03:11→07:00)
[2020-11-03 03:34] LABS: BASOPHILS % (AUTO) 0.1 % (0-1); EOSINOPHILS % (AUTO) 0.2 % (0-6); HEMOGLOBIN 12.4 g/dl (14.0-17.9); LYMPHOCYTES # (AUTO) 0.2 X10'3 (1.1-4.8); LYMPHOCYTES % (AUTO) 1.5 % (21-51); MEAN CORPUSCULAR HEMOGLOBIN 29.4 PG (27.0-31.0); MEAN CORPUSCULAR HGB CONC 33.5 g/dL (33.0-36.5); MEAN CORPUSCULAR VOLUME 87.7 FL (78-98); MEAN PLATELET VOLUME 8.9 FL (7.4-10.4); MONOCYTES # (AUTO) 1.1 X10'3 (0-0.9); MONOCYTES % (AUTO) 8.8 % (2-12); NEUTROPHILS # (AUTO) 10.9 X10'3 (1.8-7.7); NEUTROPHILS % (AUTO) 89.4 % (42-75); PLATELET COUNT 182 X10'3 (140-440); RED BLOOD COUNT 4.22 X10'6 (4.70-6.10); RED CELL DISTRIBUTION WIDTH 15.2 % (11.5-14.5); WHITE BLOOD COUNT 12.2 X10'3 (4.5-11.0)
[2020-11-03 03:48] LABS: ALANINE AMINOTRANSFERASE 202 U/L (12-78); ALBUMIN 1.7 G/DL (3.4-5.0); ALBUMIN/GLOBULIN RATIO 0.6 (1.1-1.5); ALKALINE PHOSPHATASE 96 IU/L (46-116); ANION GAP 11 (8-16); ASPARTATE AMINO TRANSFERASE 26 U/L (10-37); BILIRUBIN,TOTAL 0.9 MG/DL (0.1-1.0); BLOOD UREA NITROGEN 84 MG/DL (7-18); BUN/CREATININE RATIO 16.4 (5.4-32.0); CALCIUM 6.7 MG/DL (8.5-10.1); CHLORIDE 101 MMOL/L (99-107); CREATININE 5.12 MG/DL (0.60-1.10); GLUCOSE 111 MG/DL (70-104); MAGNESIUM 1.7 MG/DL (1.5-2.4); PHOSPHORUS 3.5 MG/DL (2.3-4.5); POTASSIUM 3.3 MMOL/L (3.5-5.1); SODIUM 135 MMOL/L (135-145); TOTAL CARBON DIOXIDE 22.7 MMOL/L (24-32); TOTAL PROTEIN 4.4 G/DL (6.4-8.2); VANCOMYCIN,RANDOM 13.8 UG/ML; eGFR 12 ML/MIN
[2020-11-03] MEDS: dexmedetomidin/NS 400mcg/100ml 100 ML IV SCH (04:29)
[2020-11-03] MEDS: potassium Cl 40MEQ/250ML bag 270 ML IV PRN (04:30)
--- NOTE | 2020-11-03 06:00 | NUR ---
Patient in room ICU 2043. I have received report from JANET JEAN and had the opportunity to ask questions and assume patient care.
[2020-11-03] MEDS ORDERED: metoprolol tartrate 1mg/ml inj IV PRN (07:25)
[2020-11-03] MEDS ORDERED: nitroGLYCERIN 0.4mg SUBLingual tab SL PRN (07:25)
[2020-11-03] MEDS ORDERED: aminophylline 250mg/10ml inj. IV PRN (07:25)
[2020-11-03] MEDS ORDERED: regadenoson 0.4mg/5ml syringe IV PRN (07:25)
[2020-11-03] MEDS ORDERED: vancomycin/NS 1 GM ADD-VANTAGE 250 ML X 1 DOSE IV ONE (08:00)
[2020-11-03] MEDS: amiodarone 200mg tablet PO SCH ×2 (08:50→19:34)
[2020-11-03] MEDS: hydrocortisone sod succ/PF 100mg/2ml inj. IV SCH ×2 (08:50→19:34)
[2020-11-03] MEDS: OLANZapine 2.5MG tablet PO SCH (08:50)
[2020-11-03] MEDS: pantoprazole 40 MG vial IV SCH (08:50)
[2020-11-03] MEDS: docusate sodium 100mg/10ml UD cup CORPAK SCH ×2 (08:50→19:34)
[2020-11-03] MEDS: K and/or MAG REPLACEMENT MC SCH ×2 (08:51→19:41)
[2020-11-03] MEDS: methylnaltrexone br 12mg/0.6ml inj***SubQ only SQ SCH (08:53)
[2020-11-03] MEDS: heparin, porcine 5000 units/ml vial SQ SCH ×2 (08:53→19:34)
[2020-11-03] MEDS ORDERED: levoFLOXACIN 250mg tablet PO ONE (09:30)
[2020-11-03] MEDS: levoFLOXACIN 250mg tablet PO SCH (11:59)
--- NOTE | 2020-11-03 12:08 | NUR ---
F/u 11/03: Pt PO 50% SB6 dinner last night currently NPO for testing this AM per RN. TPN to be weaned today per fire chief's aide. Will monitor for ONS needs pending further PO hx. Rec: 1. Continue SB6/regular diet per METAL AND PLASTIC HEATER recs 2. monitor for PO tolerance and ONS needs pending PO hx 3. routine bowel care; no BM 5 days vomiting w/ PO meds 11/02 AM 4. IF PO consistently at least 65% avg meals; consider renal diet restriction on HD 5. wts w/ HD Addendum: 11/03/20 at [address] Amended: Links added.
--- NOTE | 2020-11-03 14:00 | NUR ---
Patient oriented to room. Call light in reach. Will continue to monitor. Vital signs in routine vital signs intervention.
[2020-11-03] MEDS ORDERED: diltiazem 5mg/ml 5ml inj. IV ONE (17:40)
[2020-11-03] MEDS: diltiazem-NS 100mg/100ml 100 ML IV SCH (17:59)
--- NOTE | 2020-11-03 18:22 | NUR ---
Problems reprioritized. Patient report given, questions answered & plan of care reviewed with Leobardo JEAN. Patient stable at transfer of care.
[2020-11-04] VITALS (18 sets, daily range): BP systolic 94–147; BP diastolic 67–93
[2020-11-04] MEDS: lactulose 20gm/30ml cup CORPAK SCH ×4 (01:44→19:13)
[2020-11-04] MEDS: VANCOMYCIN LEVEL IV SCH (03:00)
[2020-11-04 03:14] LABS: BASOPHILS % (AUTO) 0.3 % (0-1); EOSINOPHILS % (AUTO) 0.1 % (0-6); HEMATOCRIT 40.5 % (42.0-52.0); HEMOGLOBIN 13.4 g/dl (14.0-17.9); LYMPHOCYTES # (AUTO) 0.3 X10'3 (1.1-4.8); LYMPHOCYTES % (AUTO) 2.6 % (21-51); MEAN CORPUSCULAR HEMOGLOBIN 29.1 PG (27.0-31.0); MEAN CORPUSCULAR HGB CONC 33.2 g/dL (33.0-36.5); MEAN CORPUSCULAR VOLUME 87.6 FL (78-98); MEAN PLATELET VOLUME 8.5 FL (7.4-10.4); MONOCYTES # (AUTO) 1.2 X10'3 (0-0.9); MONOCYTES % (AUTO) 10.4 % (2-12); NEUTROPHILS # (AUTO) 10.2 X10'3 (1.8-7.7); NEUTROPHILS % (AUTO) 86.6 % (42-75); PLATELET COUNT 225 X10'3 (140-440); RED BLOOD COUNT 4.62 X10'6 (4.70-6.10); WHITE BLOOD COUNT 11.8 X10'3 (4.5-11.0)
[2020-11-04 03:43] LABS: ALANINE AMINOTRANSFERASE 218 U/L (12-78); ALBUMIN 2.1 G/DL (3.4-5.0); ALBUMIN/GLOBULIN RATIO 0.7 (1.1-1.5); ALKALINE PHOSPHATASE 122 IU/L (46-116); ANION GAP 16 (8-16); ASPARTATE AMINO TRANSFERASE 42 U/L (10-37); BILIRUBIN,TOTAL 1.1 MG/DL (0.1-1.0); BLOOD UREA NITROGEN 126 MG/DL (7-18); BUN/CREATININE RATIO 16.6 (5.4-32.0); CALCIUM 7.8 MG/DL (8.5-10.1); CHLORIDE 95 MMOL/L (99-107); GLUCOSE 91 MG/DL (70-104); MAGNESIUM 1.9 MG/DL (1.5-2.4); POTASSIUM 5.4 MMOL/L (3.5-5.1); SODIUM 131 MMOL/L (135-145); TOTAL CARBON DIOXIDE 19.8 MMOL/L (24-32); TOTAL PROTEIN 5.3 G/DL (6.4-8.2); VANCOMYCIN,RANDOM 22.9 UG/ML; eGFR 7 ML/MIN
[2020-11-04] MEDS: diltiazem-NS 100mg/100ml 100 ML IV SCH ×3 (03:55→18:36)
--- NOTE | 2020-11-04 06:15 | NUR ---
Patient in room PCU 3022. I have received report from Leobardo JEAN and had the opportunity to ask questions and assume patient care.
[2020-11-04] MEDS ORDERED: albumin (human) 25% 100ml IV 100 ML IV PRN (06:45)
[2020-11-04] MEDS ORDERED: EPOETIN ALFA-EPBX 20,000 UNIT/ML 1 ML MDV IV ONE (06:45)
[2020-11-04] MEDS ORDERED: heparin 1,000 units/ml 10ml inj IV ONE (06:45)
[2020-11-04] MEDS ORDERED: heparin 1,000unit/ml 10ml vial 10 ML IV ONE (06:45)
[2020-11-04] MEDS ORDERED: heparin 1,000 units/ml 10ml inj HE ONE ×2 (06:50)
[2020-11-04] MEDS: K and/or MAG REPLACEMENT MC SCH ×2 (08:00→19:14)
[2020-11-04] MEDS: docusate sodium 100mg/10ml UD cup CORPAK SCH ×2 (08:00→19:14)
[2020-11-04] MEDS: heparin, porcine 5000 units/ml vial SQ SCH ×2 (08:27→19:11)
[2020-11-04] MEDS: OLANZapine 2.5MG tablet PO SCH (08:28)
[2020-11-04] MEDS: pantoprazole 40mg Tablet.DR PO SCH (08:28)
[2020-11-04] MEDS: hydrocortisone sod succ/PF 100mg/2ml inj. IV SCH ×2 (08:28→19:11)
[2020-11-04] MEDS: amiodarone 200mg tablet PO SCH ×2 (08:31→19:11)
[2020-11-04] MEDS ORDERED: regadenoson 0.4mg/5ml syringe IV ONE (09:50)
[2020-11-04] MEDS: levoFLOXACIN 250mg tablet PO SCH (11:49)
[2020-11-04] MEDS ORDERED: ondansetron 4mg rapidly disintigrating tab PO PRN (13:20)
--- NOTE | 2020-11-04 15:02 | NUR ---
F/u 11/04: Pt PO 75-100% avg initial SB6/thin diet following stress test partially meeting needs w/ initial PO thus far. RD recommends vanilla ensure high protein BIDLD given pt large stature on HD and since electrolytes lower than Nepro ONS; MD notified. Phos 6.0; would benefit from phos-binder on HD if MD agreeable. LBM 11/04 small though 300ml stool 11/03 receiving routine colace and relistor w/ reglan held this AM r/t diarrhea per EMR. Will continue to monitor for additional protein/kcal needs on HD. Rec: 1. Continue SB6/regular diet per HANDLE SANDER OPERATOR recs; consider renal diet restriction if PO consistent at least 65% avg meals 2. vanilla ensure high protein BIDLD since lower electrolytes than Nepro for additional protein intake on HD given large stature 3. Phos binder w/ meals on HD if MD agreeable 4. routine bowel care 5. wts w/ HD Addendum: 11/04/20 at [address] Amended: Links added.
[2020-11-04] MEDS: lactose-reduced food (Ensure High Protein) 237ml bottle PO SCH (17:30)
--- NOTE | 2020-11-04 18:10 | NUR ---
Problems reprioritized. Patient report given, questions answered & plan of care reviewed with Lara JEAN.
[2020-11-04] MEDS: carVEDilol 3.125mg tablet PO SCH (19:15)
[2020-11-05] VITALS (9 sets, daily range): BP systolic 111–131; BP diastolic 64–101
[2020-11-05] MEDS: lactulose 20gm/30ml cup CORPAK SCH ×3 (02:00→14:00)
[2020-11-05] MEDS: VANCOMYCIN LEVEL IV SCH (03:00)
[2020-11-05] MEDS: diltiazem-NS 100mg/100ml 100 ML IV SCH (04:45)
[2020-11-05 05:37] LABS: ALANINE AMINOTRANSFERASE 184 U/L (12-78); ALBUMIN 2.2 G/DL (3.4-5.0); ALBUMIN/GLOBULIN RATIO 0.7 (1.1-1.5); ALKALINE PHOSPHATASE 107 IU/L (46-116); ANION GAP 13 (8-16); ASPARTATE AMINO TRANSFERASE 27 U/L (10-37); BILIRUBIN,TOTAL 1.1 MG/DL (0.1-1.0); BLOOD UREA NITROGEN 81 MG/DL (7-18); BUN/CREATININE RATIO 13.8 (5.4-32.0); CALCIUM 7.7 MG/DL (8.5-10.1); CHLORIDE 97 MMOL/L (99-107); CREATININE 5.89 MG/DL (0.60-1.10); GLUCOSE 80 MG/DL (70-104); MAGNESIUM 1.8 MG/DL (1.5-2.4); PHOSPHORUS 5.2 MG/DL (2.3-4.5); POTASSIUM 4.6 MMOL/L (3.5-5.1); PREALBUMIN 27.2 MG/DL (19-36); SODIUM 134 MMOL/L (135-145); TOTAL CARBON DIOXIDE 24.1 MMOL/L (24-32); TOTAL PROTEIN 5.3 G/DL (6.4-8.2); TRIGLYCERIDES 93 MG/DL (20-135); VANCOMYCIN,RANDOM 18.5 UG/ML; eGFR 10 ML/MIN
--- NOTE | 2020-11-05 06:12 | NUR ---
Problems reprioritized. Patient report given, questions answered & plan of care reviewed with TED Bolivar & TED Joe.
--- NOTE | 2020-11-05 06:19 | NUR ---
Patient in room PCU 3022. I have received report from TED LEVI, and had the opportunity to ask questions and assume patient care.
[2020-11-05] MEDS: K and/or MAG REPLACEMENT MC SCH (08:00)
[2020-11-05] MEDS: methylnaltrexone br 12mg/0.6ml inj***SubQ only SQ SCH (08:00)
[2020-11-05] MEDS: docusate sodium 100mg/10ml UD cup CORPAK SCH (08:00)
[2020-11-05] MEDS: amiodarone 200mg tablet PO SCH (08:25)
[2020-11-05] MEDS: pantoprazole 40mg Tablet.DR PO SCH (08:25)
[2020-11-05] MEDS: carVEDilol 3.125mg tablet PO SCH (08:26)
[2020-11-05] MEDS: OLANZapine 2.5MG tablet PO SCH (08:26)
[2020-11-05] MEDS: heparin, porcine 5000 units/ml vial SQ SCH (08:27)
[2020-11-05] MEDS: hydrocortisone sod succ/PF 100mg/2ml inj. IV SCH (08:32)
[2020-11-05] MEDS: levoFLOXACIN 250mg tablet PO SCH (11:49)
[2020-11-05] MEDS: lactose-reduced food (Ensure High Protein) 237ml bottle PO SCH ×2 (12:30→17:56)
[2020-11-05 12:44] LABS: EOSINOPHILS # (AUTO) 0.1 X10'3 (0-0.9); HEMOGLOBIN 12.3 g/dl (14.0-17.9); LYMPHOCYTES # (AUTO) 0.2 X10'3 (1.1-4.8); MONOCYTES % (AUTO) 10.5 % (2-12); PLATELET COUNT 240 X10'3 (140-440)
[2020-11-05 12:46] LABS: BASOPHILS # (AUTO) 0.1 X10'3 (0-0.2); BASOPHILS % (AUTO) 0.6 % (0-1); EOSINOPHILS % (AUTO) 0.8 % (0-6); HEMATOCRIT 36.9 % (42.0-52.0); LYMPHOCYTES % (AUTO) 2.3 % (21-51); MEAN CORPUSCULAR HEMOGLOBIN 29.7 PG (27.0-31.0); MEAN CORPUSCULAR HGB CONC 33.4 g/dL (33.0-36.5); MEAN CORPUSCULAR VOLUME 89.2 FL (78-98); MEAN PLATELET VOLUME 8.2 FL (7.4-10.4); NEUTROPHILS # (AUTO) 8.6 X10'3 (1.8-7.7); NEUTROPHILS % (AUTO) 85.8 % (42-75); RED BLOOD COUNT 4.14 X10'6 (4.70-6.10); RED CELL DISTRIBUTION WIDTH 15.3 % (11.5-14.5)
--- NOTE | 2020-11-05 14:41 | NUR ---
promotional table spacer PAGE SENT PAGER ID: [phone] MESSAGE: SIGRID, 3022 , HIS HEART RATE IS RANGING BETWEEN 98-103 BPM, I WON'T BE DECREASING HIS CARDIZEM
--- NOTE | 2020-11-05 16:11 | NUR ---
PAGE SENT PAGER ID: [phone] MESSAGE: Jackson MATTA, VS FOLLOWS; BP 119/87, HR 107. YASMEEN, X [phone]
--- NOTE | 2020-11-05 18:06 | NUR ---
Pt leaving AMMichelle Pt was getting agitated with girl friend in the room. Shes been there all day and given him a haircut and helped him get cleaned up. Pt continued to be agitated when the girlfriend was done tending to him and was sitting in his room on the phone. Had a detailed conversation re: health care and safety. 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 Girlfriend verbalized that she would take care of them. He said that "she is a city slicker and can't do shit." JIMBO and MD Gan aware. If patient leaves his will leave with PICC and TDC in place. Will contact [employer] if patient leaves. JABARI paperwork signed. Pending Dr to speak with patient.
--- NOTE | 2020-11-05 18:20 | NUR ---
Dr Gan spoke with patient. Pt is determined to leave. Per MD - pull PICC and TDC. Double checked with patient that he still wants to leave AMA today. He verbalized "yes, I am leaving as soon as you're done". D/C PICC from [facility] - tip intact. Minimal bleeding and patient tolerated well.
--- NOTE | 2020-11-05 18:27 | NUR ---
Problems reprioritized. Patient report given, questions answered & plan of care reviewed with TED GONZALES.
--- NOTE | 2020-11-05 18:34 | NUR ---
Orientee documentation: I have reviewed and agree with all interventions, assessments performed and documented by TED Valle.
--- NOTE | 2020-11-05 19:04 | NUR ---
Removed TDC. [place] intact very minimal bleeding, Steril technique maintained. Pt tolerated well. He stated that ,"That blond nurse yelled,"You shoot meth " in front of those security guards. She should not have done that". I asked the 3 security guards if this was true. they stated that the statement was not true. pt placed in wheel chair and escorted out of building by security.
[2020-11-05] MEDS ORDERED: carvedilol 6.25mg tablet PO SCH (20:00)
[2020-11-06] MEDS ORDERED: heparin 1,000 units/ml 10ml inj IV ONE (08:00)
[2020-11-06] MEDS ORDERED: heparin 1,000unit/ml 10ml vial 10 ML IV ONE (08:00)
[2020-11-06] MEDS ORDERED: heparin 1,000 units/ml 10ml inj HE ONE ×2 (08:00)
[2020-11-06] MEDS ORDERED: albumin (human) 25% 100ml IV 100 ML IV PRN (08:00)
== END 2020-11-05 19:05 | disposition left against medical advice (07) | DRG 870 ==
LOC: EDUNIT# 16:20 → ER 16:21 → ED HOLD 20:06 → EDBEDREQ 21:12 → EDBEDREQSVC 21:12 → MED 3N 22:00 → ICU 2S 10-19 15:45 → PCU 3S 11-03 14:15
PROVIDERS: ADMIT Internal Medicine; ATTEND Internal Medicine
PROC: B32T1ZZ Computerized Tomography (CT Scan) of Left Pulmonary Artery using Low Osmolar Contrast (ICD-10-PCS; 2020-10-18)
PROC: B3201ZZ Computerized Tomography (CT Scan) of Thoracic Aorta using Low Osmolar Contrast (ICD-10-PCS; 2020-10-18)
PROC: B32S1ZZ Computerized Tomography (CT Scan) of Right Pulmonary Artery using Low Osmolar Contrast (ICD-10-PCS; 2020-10-18)
PROC: 5A1955Z Respiratory Ventilation, Greater than 96 Consecutive Hours (ICD-10-PCS; principal; 2020-10-19)
PROC: 0BH17EZ Insertion of Endotracheal Airway into Trachea, Via Natural or Artificial Opening (ICD-10-PCS; 2020-10-19)
PROC: 5A09357 Assistance with Respiratory Ventilation, Less than 24 Consecutive Hours, Continuous Positive Airway Pressure (ICD-10-PCS; 2020-10-19)
PROC: CB121ZZ Planar Nuclear Medicine Imaging of Lungs and Bronchi using Technetium 99m (Tc-99m) (ICD-10-PCS; 2020-10-25)
PROC: 5A1D70Z Performance of Urinary Filtration, Intermittent, Less than 6 Hours Per Day (ICD-10-PCS; 2020-10-26)
PROC: 5A1D70Z Performance of Urinary Filtration, Intermittent, Less than 6 Hours Per Day (ICD-10-PCS; 2020-10-27)
PROC: 5A1D70Z Performance of Urinary Filtration, Intermittent, Less than 6 Hours Per Day (ICD-10-PCS; 2020-10-29)
PROC: 02HV33Z Insertion of Infusion Device into Superior Vena Cava, Percutaneous Approach (ICD-10-PCS; 2020-10-30)
PROC: B548ZZA Ultrasonography of Superior Vena Cava, Guidance (ICD-10-PCS; 2020-10-30)
PROC: 0JH63XZ Insertion of Tunneled Vascular Access Device into Chest Subcutaneous Tissue and Fascia, Percutaneous Approach (ICD-10-PCS; 2020-10-30)
PROC: 02H633Z Insertion of Infusion Device into Right Atrium, Percutaneous Approach (ICD-10-PCS; 2020-10-30)
PROC: B548ZZA Ultrasonography of Superior Vena Cava, Guidance (ICD-10-PCS; 2020-10-30)
PROC: B5181ZA Fluoroscopy of Superior Vena Cava using Low Osmolar Contrast, Guidance (ICD-10-PCS; 2020-10-30)
PROC: 5A1D70Z Performance of Urinary Filtration, Intermittent, Less than 6 Hours Per Day (ICD-10-PCS; 2020-10-31)
PROC: 5A1D70Z Performance of Urinary Filtration, Intermittent, Less than 6 Hours Per Day (ICD-10-PCS; 2020-11-02)
PROC: 4A02XM4 Measurement of Cardiac Total Activity, External Approach (ICD-10-PCS; 2020-11-04)
PROC: 3E073KZ Introduction of Other Diagnostic Substance into Coronary Artery, Percutaneous Approach (ICD-10-PCS; 2020-11-04)
PROC: 5A1D70Z Performance of Urinary Filtration, Intermittent, Less than 6 Hours Per Day (ICD-10-PCS; 2020-11-04)
DX: A41.9 Sepsis, unspecified organism (principal); J18.9 Pneumonia, unspecified organism; J96.01 Acute respiratory failure with hypoxia; J96.02 Acute respiratory failure with hypercapnia; K72.00 Acute and subacute hepatic failure without coma; N17.0 Acute kidney failure with tubular necrosis; R57.0 Cardiogenic shock; R65.21 Severe sepsis with septic shock; G92 Toxic encephalopathy; I50.21 Acute systolic (congestive) heart failure; E87.1 Hypo-osmolality and hyponatremia; I42.7 Cardiomyopathy due to drug and external agent; I48.3 Typical atrial flutter; E87.4 Mixed disorder of acid-base balance; B95.62 Methicillin resistant Staphylococcus aureus infection as the cause of diseases classified elsewhere; T43.625A Adverse effect of amphetamines, initial encounter; I25.5 Ischemic cardiomyopathy; F17.200 Nicotine dependence, unspecified, uncomplicated; E78.5 Hyperlipidemia, unspecified; N18.9 Chronic kidney disease, unspecified; Z53.29 Procedure and treatment not carried out because of patient's decision for other reasons; E87.5 Hyperkalemia; E87.6 Hypokalemia; F12.90 Cannabis use, unspecified, uncomplicated; F15.10 Other stimulant abuse, uncomplicated; I48.91 Unspecified atrial fibrillation; K76.1 Chronic passive congestion of liver; Z66 Do not resuscitate; Z78.1 Physical restraint status; Z71.51 Drug abuse counseling and surveillance of drug abuser
CPT/HCPCS: 36415; 36558; 36573; 36600; 70551; 71045; 71275; 74018; 74176; 76937; 77001; 78452; 78580; 80048; 80053; 80069; 80076; 80202; 80305; 80320; 81001; 82140; 82330; 82570; 82803; 82810; 82948; 83605; 83735; 83880; 84100; 84134; 84300; 84443; 84478; 84484; 85007; 85018; 85025; 85379; 85610; 85730; 87040; 87070; 87077; 87081; 87186; 87207; 87340; 90935; 92508; 92616; 93005; 93017; 93306; 93308; 93970; 94002; 94003; 94640; 94760; 94799; 95816; 97110; 97162; 97530; 99285; A9270; A9500; A9539; A9540; C1750; C1769; C1894; C9113; E1594; G0257; G0378; J0132; J0171; J0610; J0692; J1170; J1200; J1250; J1630; J1644; J1650; J1720; J1815; J1940; J2060; J2150; J2212; J2250; J2270; J2405; J2543; J2704; J2765; J2785; J3010; J3370; J3475; J3480; J3486; J3490; J7030; J7050; J7060; J7131; P9045; P9047; Q9963; Q9967